=== PATIENT | female | born 1960 | race Caucasian/White ===

== ENCOUNTER 2016-05-31 11:33 | Inpatient (IN) | payer OTHER ==
[~2016-05-31] VITALS: Ht 149.9 cm; Wt 45.4 kg
[~2016-05-31 11:33] MED LIST: AMLODIPINE BESY10 MG PO; AMOXICILLIN875 MG PO; ASPIR 8181 M1 PO; ASPIR-LOW81 MG PO; AZITHROMYCIN250 MG PO; BENADRYL50 MG PO; CALCITRIOL0.25 MC1 NG; CALCITRIOL0.25 MCG PO; CARDIZEM CD,CA240 MG PO; CARDIZEM CD120 M1 PO; CARDIZEM120 MG PO; CLONIDINE HCL0.1 MG PO; DIALYVITE 3,001 EACH PO; DILANTIN; DILANTIN100 MG PO; DIPHENHYDRAMINE50 MG PO; FLONASE16 G1 BOTH NARES; FOSRENOL1000 MG PO; FOSRENOL500 MG PO; HYDRALAZINE HCL10 MG; HYDRALAZINE HCL10 MG PO; IMDUR30 MG PO; INDERIDE 40/1 TABLET PO; ISOSORBIDE MONO30 MG PO; KAYEXALATE15 GM/60 M PO; KIONEX15 GM/60 M PO; LEVAQUIN750 MG PO; LIDOCAINE-PRIL1 EACH TP; LIDOCAINE20 MG/1 M5 PO; LISINOPRIL40 MG PO; LOPRESSOR25 MG PO; LOPRESSOR50 MG PO; METOPROLOL SUCC50 MG PO; MULTIVITAMIN1 EAC2 PO; NICODERM CQ1 EAC1 TD; NITROSTAT0.4 MG SL; NORCO 5/3251 TABLET PO; NORVASC10 M1; NORVASC10 M1 PO; NORVASC10 MG PO; NORVASC5 MG PO; OSTERA TABLET1 EACH PO; PERCOCET 5/31 TABLET PO; PHENYTOIN SODI100 M1 PO; PHENYTOIN SODI100 MG PO; PREDNISONE20 MG PO; PRINIVIL20 MG PO; RENA-VITE RX T1 EACH PO; RENVELA800 MG PO; SENSIPAR30 MG PO; SENSIPAR60 MG PO; TOPROL XL50 MG PO; TRAMADOL HCL50 MG PO; TYLENOL EXTRA500 MG PO
[2016-05-31 12:58] LABS: EOSINOPHIL (%) 0.3 % (0-5); HEMATOCRIT 36.4 % (36.0-46.0); IMMATURE GRANULOCYTE (%) 0.5 % (0.0-0.7); IMMATURE GRANULOCYTE COUNT 0.1 K/uL; INSTRUMENT ABS NEUTROPHIL CT 8.3 K/uL; LYMPHOCYTE COUNT 0.7 K/uL (1.0-2.8); MCH 31.6 PG (29.0-34.0); MCHC 32.7 G/DL (30.0-36.0); MCV 96.6 FL (83-99); MEAN PLAT.VOLUME 13.2 uM^3 (9.5-12.4); MONOCYTE (%) 8.8 % (3-12); MONOCYTE COUNT 0.9 K/uL (0-0.8); NEUTROPHIL (%) 82.9 % (45-76); NEUTROPHIL COUNT 8.3 K/uL (1.8-6.4); PLATELET COUNT 168 K/uL (156-360); RBC DIS.WIDTH-CV 17.6 % (11.8-14.6); RBC DIS.WIDTH-SD 61.1 % (39-53); RED BLOOD COUNT 3.77 M/uL (3.80-5.20)
[2016-05-31 13:07] LABS: CHLORIDE 89 mEq/L (99-109); SODIUM 138 mEq/L (136-147)
[2016-05-31 13:08] LABS: INTER. NORMALIZED RATIO 1.4; PROTHROMBIN TIME 14.8 (9.2-11.2); PTT 28.5 (25-32)
[2016-05-31 13:09] LABS: GLUCOSE 63 mg/dL (70-99)
[2016-05-31 13:10] LABS: ANION GAP 28 MEQ/L (2-14)
[2016-05-31 13:13] LABS: GFR ESTIMATE (CALCULATED) 4 mL/min/
[2016-05-31 13:19] LABS: TROP-I INTERPRETATION NEGATIVE; TROPONIN-I 0.08 ng/mL (0.0-0.30)
[2016-05-31 13:20] LABS: POTASSIUM 7.4 mEq/L (3.7-5.4); UREA NITROGEN (BUN) 102 mg/dL (9-23)
[2016-05-31] MEDS ORDERED: RENVELA800 MG PO ×2 (14:44→15:19)
[2016-05-31] MEDS ORDERED: VENTOLIN HFA18 GM IH (14:45)
[2016-05-31] MEDS ORDERED: NORVASC10 MG PO (14:45)
[2016-05-31] MEDS ORDERED: KIONEX15 GM/60 M PO (14:46)
[2016-05-31] MEDS ORDERED: LIDOCAINE-PRIL1 EACH TP (14:47)
[2016-05-31 14:49] LABS: CHLORIDE 90 mEq/L (99-109); SODIUM 137 mEq/L (136-147)
[2016-05-31 14:52] LABS: ANION GAP 26 MEQ/L (2-14)
[2016-05-31 14:53] LABS: GLUCOSE 105 mg/dL (70-99); POTASSIUM 6.2 mEq/L (3.7-5.4)
[2016-05-31 14:54] LABS: GFR ESTIMATE (CALCULATED) 4 mL/min/
[2016-05-31] MEDS ORDERED: RENAPLEX D PO (14:55)
[2016-05-31 14:56] LABS: UREA NITROGEN (BUN) 101 mg/dL (9-23)
[2016-05-31] MEDS ORDERED: METOPROLOL SUCC50 MG PO (15:18)
[2016-05-31 19:29] LABS: CHLORIDE 94 mEq/L (99-109); SODIUM 140 mEq/L (136-147)
[2016-05-31 19:30] VITALS: BP 117/81
[2016-05-31 19:32] LABS: ANION GAP 17 MEQ/L (2-14)
[2016-05-31 19:39] LABS: GFR ESTIMATE (CALCULATED) 9 mL/min/; GLUCOSE 59 mg/dL (70-99); POTASSIUM 4.4 mEq/L (3.7-5.4); UREA NITROGEN (BUN) 33 mg/dL (9-23)
[2016-06-01 00:10] VITALS: BP 130/89
[2016-06-01 03:43] VITALS: BP 109/82
[2016-06-01 07:39] LABS: ANION GAP 18 MEQ/L (2-14); CHLORIDE 94 MEQ/L (99-109); GFR ESTIMATE (CALCULATED) 7 mL/min/; POTASSIUM 5.2 MEQ/L (3.7-5.4); SAMPLE HEMOLYSIS CHECK 0; SAMPLE ICTERIC CHECK 0; SAMPLE LIPEMIA CHECK 0; SODIUM 140 MEQ/L (136-147); UREA NITROGEN (BUN) 46 mg/dL (9-23)
[2016-06-01 07:40] LABS: GLUCOSE 84 mg/dL (70-99)
[2016-06-01 07:58] LABS: MCH 30.6 PG (29.0-34.0); MCHC 31.4 G/DL (30.0-36.0); MCV 97.6 FL (83-99); MEAN PLAT.VOLUME 13.1 uM^3 (9.5-12.4); PLATELET COUNT 140 K/uL (156-360); RBC DIS.WIDTH-CV 17.6 % (11.8-14.6); RBC DIS.WIDTH-SD 62.4 % (39-53); RED BLOOD COUNT 3.69 M/uL (3.80-5.20); WHITE BLOOD COUNT 8.2 K/uL (4.1-10.2)
[2016-06-01 08:36] VITALS: BP 115/74
[2016-06-01 12:00] VITALS: BP 93/56
== END 2016-06-01 16:16 | disposition left against medical advice (07) | DRG 640 ==
LOC: EME 11:33 → 4EAST 14:15 → EDOF 14:15 → 4EAST 21:24
PROVIDERS: Emergency Medicine; Internal Medicine; Nurse Practitioner Family
PROC: 5A1D00Z (ICD-10-PCS; principal; 2016-06-01)
DX: E87.5 Hyperkalemia (principal); N18.6 End stage renal disease; J81.1 Chronic pulmonary edema; I12.0 Hypertensive chronic kidney disease with stage 5 chronic kidney disease or end stage renal disease; I50.30 Unspecified diastolic (congestive) heart failure; F17.200 Nicotine dependence, unspecified, uncomplicated; I48.91 Unspecified atrial fibrillation; Z99.2 Dependence on renal dialysis; E87.8 Other disorders of electrolyte and fluid balance, not elsewhere classified; Z91.15 Patient's noncompliance with renal dialysis; F09 Unspecified mental disorder due to known physiological condition; D63.1 Anemia in chronic kidney disease; E78.5 Hyperlipidemia, unspecified
CPT/HCPCS: 71010; 80048; 80048 91; 84484; 85025; 85027; 85610; 85730; 87040; 93005; 93306; 94640; 94799; 99202; 99281; 99285; G0378; J1644

== ENCOUNTER 2016-06-14 13:55 | Day surgery (SDC) | payer OTHER ==
[~2016-06-14 13:55] MED LIST changes: +RENAPLEX D PO; +VENTOLIN HFA18 GM IH
[2016-06-14 15:59] LABS: METH RESISTANT S AUREUS PCR NEGATIVE (NEGATIVE)
[2016-06-14 16:00] LABS: PROBE CHECK PASS; SPECIMEN PROCESSING CONTROL PASS
== END 2016-06-14 17:25 | disposition home or self-care (01) ==
LOC: CATH 13:55
PROVIDERS: Surgery
DX: T82.868A Thrombosis due to vascular prosthetic devices, implants and grafts, initial encounter (principal); T82.858A Stenosis of other vascular prosthetic devices, implants and grafts, initial encounter; Y83.2 Surgical operation with anastomosis, bypass or graft as the cause of abnormal reaction of the patient, or of later complication, without mention of misadventure at the time of the procedure; I12.0 Hypertensive chronic kidney disease with stage 5 chronic kidney disease or end stage renal disease; N18.6 End stage renal disease; Z99.2 Dependence on renal dialysis
CPT/HCPCS: 87641; C1725; C1757; C1769; C1874; C1894; C2628; J1644; J2250; J3010

== ENCOUNTER 2016-06-19 09:07 | Inpatient (IN) | payer OTHER ==
[~2016-06-19] VITALS: Ht 149.9 cm; Wt 48.2 kg
[2016-06-19 10:11] LABS: EOSINOPHIL (%) 1.2 % (0-5); EOSINOPHIL COUNT 0.1 K/uL (0-0.3); HEMATOCRIT 30.4 % (36.0-46.0); IMMATURE GRANULOCYTE (%) 0.4 % (0.0-0.7); INSTRUMENT ABS NEUTROPHIL CT 5.8 K/uL; LYMPHOCYTE COUNT 0.9 K/uL (1.0-2.8); MCH 31.5 PG (29.0-34.0); MCHC 32.6 G/DL (30.0-36.0); MCV 96.8 FL (83-99); MEAN PLAT.VOLUME 12.5 uM^3 (9.5-12.4); MONOCYTE (%) 7.5 % (3-12); MONOCYTE COUNT 0.6 K/uL (0-0.8); NEUTROPHIL (%) 78.1 % (45-76); NEUTROPHIL COUNT 5.8 K/uL (1.8-6.4); NRBC (%) 0.3 /100 WBC (0-0); PLATELET COUNT 134 K/uL (156-360); RBC DIS.WIDTH-CV 16.8 % (11.8-14.6); RBC DIS.WIDTH-SD 57.1 % (39-53); RED BLOOD COUNT 3.14 M/uL (3.80-5.20); WHITE BLOOD COUNT 7.4 K/uL (4.1-10.2)
[2016-06-19 10:30] LABS: CHLORIDE 90 mEq/L (99-109); POTASSIUM 4.1 mEq/L (3.7-5.4); SODIUM 136 mEq/L (136-147)
[2016-06-19 10:32] LABS: GLUCOSE 86 mg/dL (70-99)
[2016-06-19 10:33] LABS: ANION GAP 18 MEQ/L (2-14)
[2016-06-19 10:36] LABS: GFR ESTIMATE (CALCULATED) 6 mL/min/; UREA NITROGEN (BUN) 45 mg/dL (9-23)
[2016-06-19 10:47] LABS: INFLUENZA A VIRAL ANTIGEN NEGATIVE; INFLUENZA B VIRAL ANTIGEN NEGATIVE
[2016-06-19] MEDS ORDERED: LO-DOSE ASPIRIN81 M2 PO (18:54)
[2016-06-19] MEDS ORDERED: RENVELA2.4 GM PO (18:55)
[2016-06-19 23:35] VITALS: BP 114/74
[2016-06-19 23:51] VITALS: BP 114/74
[2016-06-20] VITALS (7 sets, daily range): BP systolic 84–134; BP diastolic 52–81
[2016-06-20 02:08] LABS: TROP-I INTERPRETATION NEGATIVE; TROPONIN-I 0.04 ng/mL (0.0-0.30)
[2016-06-20 07:01] LABS: HEMATOCRIT 32.2 % (36.0-46.0); MCH 31.8 PG (29.0-34.0); MCHC 31.7 G/DL (30.0-36.0); MCV 100.3 FL (83-99); MEAN PLAT.VOLUME 12.2 uM^3 (9.5-12.4); NRBC (%) 0.7 /100 WBC (0-0); PLATELET COUNT 144 K/uL (156-360); RBC DIS.WIDTH-CV 17.2 % (11.8-14.6); RBC DIS.WIDTH-SD 60.3 % (39-53); RED BLOOD COUNT 3.21 M/uL (3.80-5.20)
[2016-06-20 07:32] LABS: TROP-I INTERPRETATION NEGATIVE; TROPONIN-I 0.04 ng/mL (0.0-0.30)
[2016-06-20 07:52] LABS: ANION GAP 15 MEQ/L (2-14); CHLORIDE 97 MEQ/L (99-109); GFR ESTIMATE (CALCULATED) 10 mL/min/; GLUCOSE 88 mg/dL (70-99); POTASSIUM 4.5 MEQ/L (3.7-5.4); SAMPLE HEMOLYSIS CHECK 0; SAMPLE ICTERIC CHECK 0; SAMPLE LIPEMIA CHECK 0; SODIUM 140 MEQ/L (136-147); UREA NITROGEN (BUN) 29 mg/dL (9-23)
[2016-06-21 03:50] VITALS: BP 134/90
[2016-06-21 05:33] LABS: HEMATOCRIT 33.2 % (36.0-46.0); MCH 32.4 PG (29.0-34.0); MCHC 32.5 G/DL (30.0-36.0); MCV 99.7 FL (83-99); MEAN PLAT.VOLUME 13.2 uM^3 (9.5-12.4); NRBC (%) 0.5 /100 WBC (0-0); PLATELET COUNT 141 K/uL (156-360); RBC DIS.WIDTH-CV 17.3 % (11.8-14.6); RBC DIS.WIDTH-SD 59.5 % (39-53); RED BLOOD COUNT 3.33 M/uL (3.80-5.20); WHITE BLOOD COUNT 6.2 K/uL (4.1-10.2)
[2016-06-21 05:51] LABS: ANION GAP 18 MEQ/L (2-14); CHLORIDE 93 MEQ/L (99-109); MAGNESIUM 2.8 mg/dl (1.3-2.7); SAMPLE HEMOLYSIS CHECK 0; SAMPLE ICTERIC CHECK 0; SAMPLE LIPEMIA CHECK 0; SODIUM 136 MEQ/L (136-147)
[2016-06-21 05:58] LABS: GFR ESTIMATE (CALCULATED) 6 mL/min/; GLUCOSE 150 mg/dL (70-99); POTASSIUM 5.6 MEQ/L (3.7-5.4); UREA NITROGEN (BUN) 59 mg/dL (9-23)
[2016-06-21 07:26] VITALS: BP 114/74
[2016-06-21] MEDS ORDERED: MEDROL DOSEPAK4 MG PO (10:46)
[2016-06-21 11:34] VITALS: BP 129/70
== END 2016-06-21 14:01 | disposition home or self-care (01) | DRG 291 ==
LOC: EME → EDBD 09:07 → EME 09:07 → 4EAST 21:55 → EDOF 21:55 → 4EAST 23:32
PROVIDERS: Emergency Medicine; Hospitalist; Internal Medicine Nephrology
PROC: 5A1D60Z (ICD-10-PCS; principal; 2016-06-19)
DX: I13.2 Hypertensive heart and chronic kidney disease with heart failure and with stage 5 chronic kidney disease, or end stage renal disease (principal); I50.33 Acute on chronic diastolic (congestive) heart failure; N18.6 End stage renal disease; J96.01 Acute respiratory failure with hypoxia; J44.1 Chronic obstructive pulmonary disease with (acute) exacerbation; Z99.2 Dependence on renal dialysis; I27.2 Other secondary pulmonary hypertension; Z91.19 Patient's noncompliance with other medical treatment and regimen; I48.0 Paroxysmal atrial fibrillation; G40.909 Epilepsy, unspecified, not intractable, without status epilepticus; D69.6 Thrombocytopenia, unspecified; F17.200 Nicotine dependence, unspecified, uncomplicated; I05.0 Rheumatic mitral stenosis; F41.9 Anxiety disorder, unspecified; R59.1 Generalized enlarged lymph nodes; E87.5 Hyperkalemia; D63.1 Anemia in chronic kidney disease; I42.9 Cardiomyopathy, unspecified
CPT/HCPCS: 70450; 70490; 70551; 71010; 80048; 80069; 83735; 84443; 84484; 85025; 85027; 87040; 87502; 87651 90; 93005; 94640; 94799; 99202; 99281; 99285; J1644; J2930; J7050

== ENCOUNTER 2016-08-16 10:37 | Emergency (ER) | payer OTHER ==
[~2016-08-16] VITALS: Ht 147.3 cm; Wt 51.8 kg
[~2016-08-16 10:37] MED LIST changes: +LO-DOSE ASPIRIN81 M2 PO; +MEDROL DOSEPAK4 MG PO; +RENVELA2.4 GM PO
[2016-08-16 11:33] LABS: EOSINOPHIL (%) 0.9 % (0-5); EOSINOPHIL COUNT 0.1 K/uL (0-0.3); HEMATOCRIT 34.9 % (36.0-46.0); IMMATURE GRANULOCYTE (%) 0.4 % (0.0-0.7); IMMATURE GRANULOCYTE COUNT 0.1 K/uL; INSTRUMENT ABS NEUTROPHIL CT 9.7 K/uL; LYMPHOCYTE COUNT 0.8 K/uL (1.0-2.8); MCH 32.7 PG (29.0-34.0); MCHC 33.2 G/DL (30.0-36.0); MCV 98.3 FL (83-99); MEAN PLAT.VOLUME 11.7 uM^3 (9.5-12.4); MONOCYTE (%) 7.7 % (3-12); MONOCYTE COUNT 0.9 K/uL (0-0.8); NEUTROPHIL (%) 83.8 % (45-76); NEUTROPHIL COUNT 9.7 K/uL (1.8-6.4); PLATELET COUNT 101 K/uL (156-360); RBC DIS.WIDTH-CV 16.7 % (11.8-14.6); RBC DIS.WIDTH-SD 60.6 % (39-53); RED BLOOD COUNT 3.55 M/uL (3.80-5.20); WHITE BLOOD COUNT 11.6 K/uL (4.1-10.2)
[2016-08-16 11:46] LABS: CHLORIDE 96 mEq/L (99-109); SODIUM 138 mEq/L (136-147)
[2016-08-16 11:48] LABS: GLUCOSE 92 mg/dL (70-99)
[2016-08-16 11:49] LABS: ANION GAP 14 MEQ/L (2-14)
[2016-08-16 11:51] LABS: GFR ESTIMATE (CALCULATED) 5 mL/min/
[2016-08-16 11:52] LABS: UREA NITROGEN (BUN) 61 mg/dL (9-23)
[2016-08-16 18:05] VITALS: BP 141/105
== END 2016-08-16 18:05 | disposition left against medical advice (07) ==
LOC: EME 10:37
PROVIDERS: Emergency Medicine
DX: J44.9 Chronic obstructive pulmonary disease, unspecified (principal); J40 Bronchitis, not specified as acute or chronic; R00.0 Tachycardia, unspecified; I12.0 Hypertensive chronic kidney disease with stage 5 chronic kidney disease or end stage renal disease; N18.6 End stage renal disease; E87.5 Hyperkalemia; Z99.2 Dependence on renal dialysis; J45.909 Unspecified asthma, uncomplicated; Z79.82 Long term (current) use of aspirin; Z88.5 Allergy status to narcotic agent; Z88.0 Allergy status to penicillin; Z88.8 Allergy status to other drugs, medicaments and biological substances; Z87.891 Personal history of nicotine dependence
CPT/HCPCS: 71010; 80048; 85025; 93005; 94640; 99281; 99284

== ENCOUNTER 2016-10-15 06:20 | Inpatient (IN) | payer OTHER ==
[~2016-10-15] VITALS: Ht 124.5 cm; Wt 55.8 kg
[2016-10-15 06:55] LABS: EOSINOPHIL (%) 2.2 % (0-5); EOSINOPHIL COUNT 0.2 K/uL (0-0.3); IMMATURE GRANULOCYTE (%) 0.1 % (0.0-0.7); INSTRUMENT ABS NEUTROPHIL CT 4.7 K/uL; LYMPHOCYTE COUNT 1.2 K/uL (1.0-2.8); MCHC 31.9 G/DL (30.0-36.0); MCV 103.4 FL (83-99); MEAN PLAT.VOLUME 11.1 uM^3 (9.5-12.4); MONOCYTE (%) 12.5 % (3-12); MONOCYTE COUNT 0.9 K/uL (0-0.8); NEUTROPHIL (%) 67.8 % (45-76); NEUTROPHIL COUNT 4.7 K/uL (1.8-6.4); PLATELET COUNT 149 K/uL (156-360); RBC DIS.WIDTH-CV 17.4 % (11.8-14.6); RBC DIS.WIDTH-SD 65.1 % (39-53); RED BLOOD COUNT 3.48 M/uL (3.80-5.20)
[2016-10-15 07:02] LABS: INTER. NORMALIZED RATIO 1.1; PROTHROMBIN TIME 12.6 SEC (10.2-12.9)
[2016-10-15 07:04] LABS: PTT 31.7 SEC (25-37)
[2016-10-15 07:21] LABS: ANION GAP 15 MEQ/L (2-14); CHLORIDE 93 MEQ/L (99-109); POTASSIUM 5.3 MEQ/L (3.7-5.4); SAMPLE HEMOLYSIS CHECK 0; SAMPLE ICTERIC CHECK 0; SAMPLE LIPEMIA CHECK 0; SODIUM 139 MEQ/L (136-147)
[2016-10-15 07:27] LABS: GFR ESTIMATE (CALCULATED) 7 mL/min/; GLUCOSE 87 mg/dL (70-99); UREA NITROGEN (BUN) 48 mg/dL (9-23)
[2016-10-15 07:41] LABS: TROP-I INTERPRETATION POSITIVE; TROPONIN-I 2.92 ng/mL (0.0-0.30)
[2016-10-15] MEDS ORDERED: ZESTRIL40 MG PO (10:02)
[2016-10-15] MEDS ORDERED: AMLODIPINE BESY10 MG PO (10:03)
[2016-10-15] MEDS ORDERED: SENSIPAR60 MG PO (10:03)
[2016-10-15] MEDS ORDERED: CARDIZEM CD120 MG PO (10:04)
[2016-10-15] MEDS ORDERED: LIDOCAINE-PRIL1 EACH TP (10:04)
[2016-10-15] MEDS ORDERED: TOPROL XL50 MG PO (10:05)
[2016-10-15] MEDS ORDERED: LOW DOSE ASPIRI81 M1 PO (10:06)
[2016-10-15] MEDS ORDERED: RENVELA800 MG PO ×2 (10:06→10:07)
[2016-10-15] MEDS ORDERED: DILANTIN100 MG PO (10:08)
[2016-10-15 10:27] VITALS: BP 120/78
[2016-10-15 10:29] VITALS: BP 120/78
[2016-10-15 15:23] VITALS: BP 97/57
[2016-10-15 17:06] LABS: TROP-I INTERPRETATION POSITIVE; TROPONIN-I 3.17 ng/mL (0.0-0.30)
[2016-10-15 20:03] VITALS: BP 99/57
[2016-10-16] VITALS (7 sets, daily range): BP systolic 98–114; BP diastolic 47–64
[2016-10-16 05:26] LABS: BASOPHIL COUNT 0.1 K/uL (0-0.1); EOSINOPHIL (%) 2.3 % (0-5); EOSINOPHIL COUNT 0.2 K/uL (0-0.3); HEMATOCRIT 35.6 % (36.0-46.0); IMMATURE GRANULOCYTE (%) 0.2 % (0.0-0.7); INSTRUMENT ABS NEUTROPHIL CT 5.5 K/uL; LYMPHOCYTE COUNT 1.6 K/uL (1.0-2.8); MCH 33.5 PG (29.0-34.0); MCHC 32.6 G/DL (30.0-36.0); MCV 102.9 FL (83-99); MEAN PLAT.VOLUME 11.7 uM^3 (9.5-12.4); MONOCYTE (%) 10.2 % (3-12); MONOCYTE COUNT 0.8 K/uL (0-0.8); NEUTROPHIL (%) 67.1 % (45-76); NEUTROPHIL COUNT 5.5 K/uL (1.8-6.4); PLATELET COUNT 160 K/uL (156-360); RBC DIS.WIDTH-CV 17.4 % (11.8-14.6); RBC DIS.WIDTH-SD 64.9 % (39-53); RED BLOOD COUNT 3.46 M/uL (3.80-5.20); WHITE BLOOD COUNT 8.2 K/uL (4.1-10.2)
[2016-10-16 06:13] LABS: ANION GAP 19 MEQ/L (2-14); CHLORIDE 91 MEQ/L (99-109); GLUCOSE 88 mg/dL (70-99); SAMPLE HEMOLYSIS CHECK 0; SAMPLE ICTERIC CHECK 0; SAMPLE LIPEMIA CHECK 0; SODIUM 137 MEQ/L (136-147); UREA NITROGEN (BUN) 69 mg/dL (9-23)
[2016-10-16 06:28] LABS: GFR ESTIMATE (CALCULATED) 5 mL/min/; POTASSIUM 6.4 MEQ/L (3.7-5.4)
[2016-10-16 08:32] LABS: MAGNESIUM 2.9 mg/dl (1.3-2.7)
[2016-10-16 11:00] LABS: POINT-OF-CARE METER ID UU13113698
[2016-10-16 16:27] LABS: CHLORIDE 95 mEq/L (99-109); SODIUM 139 mEq/L (136-147)
[2016-10-16 16:29] LABS: GLUCOSE 50 mg/dL (70-99); POTASSIUM 3.7 mEq/L (3.7-5.4)
[2016-10-16 16:30] LABS: ANION GAP 22 MEQ/L (2-14)
[2016-10-16 16:33] LABS: GFR ESTIMATE (CALCULATED) 12 mL/min/
[2016-10-16 16:40] LABS: UREA NITROGEN (BUN) 19 mg/dL (9-23)
[2016-10-17 00:13] VITALS: BP 115/51
[2016-10-17 11:18] LABS: AHBS INDEX 2.44; HEPATITIS B SURFACE ANTIBODY Nonreactive
== END 2016-10-17 00:51 | disposition short-term general hospital (02) | DRG 280 ==
LOC: EME → EDBD 06:20 → EME 06:20 → EDOF 08:43 → 4EAST 08:43 → ENRESERV 08:50 → 4EAST 10:14
PROVIDERS: Emergency Medicine; Internal Medicine; Internal Medicine Cardiovascular Disease; Student in an Organized Health Care Education/Training Program
PROC: 4A023N7 Measurement of Cardiac Sampling and Pressure, Left Heart, Percutaneous Approach (ICD-10-PCS; principal; 2016-10-16)
PROC: B2151ZZ Fluoroscopy of Left Heart using Low Osmolar Contrast (ICD-10-PCS; principal; 2016-10-16)
PROC: B2111ZZ Fluoroscopy of Multiple Coronary Arteries using Low Osmolar Contrast (ICD-10-PCS; principal; 2016-10-16)
PROC: 5A1D00Z (ICD-10-PCS; principal; 2016-10-16)
DX: I21.4 Non-ST elevation (NSTEMI) myocardial infarction (principal); N25.81 Secondary hyperparathyroidism of renal origin; I12.0 Hypertensive chronic kidney disease with stage 5 chronic kidney disease or end stage renal disease; I27.2 Other secondary pulmonary hypertension; E83.39 Other disorders of phosphorus metabolism; N18.6 End stage renal disease; S06.9X9S Unspecified intracranial injury with loss of consciousness of unspecified duration, sequela; I48.0 Paroxysmal atrial fibrillation; G40.909 Epilepsy, unspecified, not intractable, without status epilepticus; D63.1 Anemia in chronic kidney disease; E78.5 Hyperlipidemia, unspecified; E87.5 Hyperkalemia; F17.210 Nicotine dependence, cigarettes, uncomplicated; F71 Moderate intellectual disabilities; I25.10 Atherosclerotic heart disease of native coronary artery without angina pectoris; I34.0 Nonrheumatic mitral (valve) insufficiency; J44.9 Chronic obstructive pulmonary disease, unspecified; Z79.82 Long term (current) use of aspirin; Z79.899 Other long term (current) drug therapy; Z82.49 Family history of ischemic heart disease and other diseases of the circulatory system; V89.2XXS Person injured in unspecified motor-vehicle accident, traffic, sequela; Z91.14 Patient's other noncompliance with medication regimen; Z99.2 Dependence on renal dialysis
CPT/HCPCS: 71010; 80048; 80048 91; 82948; 83735; 84484; 85025; 85027; 85347; 85610; 85730; 86706; 87340; 93005; 94640; 94799; 99281; 99285; C1769; C1887; J1170; J1644; J1815; J2250; J3010; J7040; S0028

== ENCOUNTER 2016-10-29 06:45 | Observation (INO) | payer OTHER ==
[~2016-10-29] VITALS: Ht 127 cm; Wt 53.6 kg
[~2016-10-29 06:45] MED LIST changes: +CARDIZEM CD120 MG PO; +LOW DOSE ASPIRI81 M1 PO; +ZESTRIL40 MG PO
[2016-10-29 07:18] LABS: BASOPHIL COUNT 0.1 K/uL (0-0.1); EOSINOPHIL (%) 1.7 % (0-5); EOSINOPHIL COUNT 0.1 K/uL (0-0.3); IMMATURE GRANULOCYTE (%) 0.2 % (0.0-0.7); INSTRUMENT ABS NEUTROPHIL CT 6.4 K/uL; LYMPHOCYTE COUNT 0.8 K/uL (1.0-2.8); MCH 32.8 PG (29.0-34.0); MCHC 31.5 G/DL (30.0-36.0); MCV 104.2 FL (83-99); MEAN PLAT.VOLUME 10.9 uM^3 (9.5-12.4); MONOCYTE (%) 10.4 % (3-12); MONOCYTE COUNT 0.9 K/uL (0-0.8); NEUTROPHIL (%) 77.8 % (45-76); NEUTROPHIL COUNT 6.4 K/uL (1.8-6.4); PLATELET COUNT 148 K/uL (156-360); RBC DIS.WIDTH-CV 16.3 % (11.8-14.6); RBC DIS.WIDTH-SD 62.7 % (39-53); WHITE BLOOD COUNT 8.2 K/uL (4.1-10.2)
[2016-10-29 07:27] LABS: PTT 40.7 SEC (25-37); RED BLOOD COUNT 2.59 M/uL (3.80-5.20)
[2016-10-29 07:31] LABS: INTER. NORMALIZED RATIO 2.7; PROTHROMBIN TIME 30.6 SEC (10.2-12.9)
[2016-10-29 07:43] LABS: ALKALINE PHOSPHATASE 152 IU/L (3-129); ANION GAP 12 MEQ/L (2-14); CHLORIDE 96 MEQ/L (99-109); GFR ESTIMATE (CALCULATED) 7 mL/min/; GLUCOSE 92 mg/dL (70-99); POTASSIUM 4.4 MEQ/L (3.7-5.4); SAMPLE HEMOLYSIS CHECK 0; SAMPLE ICTERIC CHECK 0; SAMPLE LIPEMIA CHECK 0; SODIUM 137 MEQ/L (136-147); TOTAL BILIRUBIN 0.4 MG/DL (0.0-1.0); TROP-I INTERPRETATION NEGATIVE; TROPONIN-I 0.08 ng/mL (0.0-0.30); UREA NITROGEN (BUN) 36 mg/dL (9-23)
[2016-10-29 10:24] VITALS: BP 128/79
[2016-10-29 13:41] LABS: TROP-I INTERPRETATION NEGATIVE; TROPONIN-I 0.08 ng/mL (0.0-0.30)
[2016-10-29 19:41] LABS: TROP-I INTERPRETATION NEGATIVE; TROPONIN-I 0.08 ng/mL (0.0-0.30)
[2016-10-29 20:00] VITALS: BP 127/73
[2016-10-30] VITALS: BP 138/77
[2016-10-30 04:00] VITALS: BP 150/81
[2016-10-30 08:05] LABS: HEMATOCRIT 26.5 % (36.0-46.0); MCH 32.9 PG (29.0-34.0); MCHC 32.1 G/DL (30.0-36.0); MCV 102.7 FL (83-99); MEAN PLAT.VOLUME 11.4 uM^3 (9.5-12.4); PLATELET COUNT 156 K/uL (156-360); RBC DIS.WIDTH-CV 16.2 % (11.8-14.6); RBC DIS.WIDTH-SD 61.2 % (39-53); RED BLOOD COUNT 2.58 M/uL (3.80-5.20); WHITE BLOOD COUNT 8.2 K/uL (4.1-10.2)
[2016-10-30 08:28] LABS: ANION GAP 14 MEQ/L (2-14); CHLORIDE 94 MEQ/L (99-109); GFR ESTIMATE (CALCULATED) 6 mL/min/; GLUCOSE 124 mg/dL (70-99); SAMPLE HEMOLYSIS CHECK 0; SAMPLE ICTERIC CHECK 0; SAMPLE LIPEMIA CHECK 0; SODIUM 135 MEQ/L (136-147); UREA NITROGEN (BUN) 59 mg/dL (9-23)
[2016-10-30] MEDS ORDERED: MAALOX ADVANCE355 ML PO (09:20)
[2016-10-30] MEDS ORDERED: SENSIPAR60 MG PO (09:21)
[2016-10-30] MEDS ORDERED: AMLODIPINE BESY10 MG PO (09:21)
[2016-10-30] MEDS ORDERED: NITROSTAT0.4 MG SL (09:21)
[2016-10-30] MEDS ORDERED: ZANTAC150 MG PO (09:21)
[2016-10-30] MEDS ORDERED: CARDIZEM CD120 MG PO (09:21)
[2016-10-30] MEDS ORDERED: RENVELA800 MG PO ×2 (09:21)
[2016-10-30] MEDS ORDERED: ZESTRIL40 MG PO (09:21)
[2016-10-30] MEDS ORDERED: TOPROL XL50 MG PO (09:21)
[2016-10-30 11:59] VITALS: BP 137/83
== END 2016-10-30 13:59 | disposition home or self-care (01) ==
LOC: EME → EDBD 06:45 → EDOF 08:59 → 5WEST 08:59 → EDOF 08:59 → ENRESERV 09:01 → EDOF 09:04 → ENRESERV 09:11 → 5WEST 10:11 → ENPENDDIS 10-30 → 5WEST 10-30 13:59
PROVIDERS: Emergency Medicine; Internal Medicine
DX: R07.89 Other chest pain (principal); I25.10 Atherosclerotic heart disease of native coronary artery without angina pectoris; I25.2 Old myocardial infarction; I12.0 Hypertensive chronic kidney disease with stage 5 chronic kidney disease or end stage renal disease; N18.6 End stage renal disease; Z99.2 Dependence on renal dialysis; I48.0 Paroxysmal atrial fibrillation; G40.909 Epilepsy, unspecified, not intractable, without status epilepticus; Z87.820 Personal history of traumatic brain injury; D69.6 Thrombocytopenia, unspecified; D64.9 Anemia, unspecified; J44.9 Chronic obstructive pulmonary disease, unspecified; I27.2 Other secondary pulmonary hypertension; I34.0 Nonrheumatic mitral (valve) insufficiency; E83.39 Other disorders of phosphorus metabolism; N25.81 Secondary hyperparathyroidism of renal origin; Z82.49 Family history of ischemic heart disease and other diseases of the circulatory system; Z87.891 Personal history of nicotine dependence; Z88.0 Allergy status to penicillin
CPT/HCPCS: 71010; 80048; 80053; 84484; 85025; 85027; 85610; 85730; 93005; 94799; 99281; 99285; G0257; G0378; J1644

== ENCOUNTER 2016-11-20 06:48 | Inpatient (IN) | payer OTHER ==
[~2016-11-20] VITALS: Ht 124.5 cm; Wt 46.5 kg
[~2016-11-20 06:48] MED LIST changes: +MAALOX ADVANCE355 ML PO; +ZANTAC150 MG PO
[2016-11-20 07:46] LABS: HEMATOCRIT 28.7 % (36.0-46.0); MCH 33.3 PG (29.0-34.0); MCHC 31.7 G/DL (30.0-36.0); MCV 105.1 FL (83-99); RBC DIS.WIDTH-CV 16.3 % (11.8-14.6); RBC DIS.WIDTH-SD 60.4 % (39-53); RED BLOOD COUNT 2.73 M/uL (3.80-5.20); WHITE BLOOD COUNT 9.4 K/uL (4.1-10.2)
[2016-11-20] MEDS ORDERED: RENVELA2.4 GM PO (07:46)
[2016-11-20 08:19] LABS: MEAN PLAT.VOLUME 12.4 uM^3 (9.5-12.4); PLAT.SUFFICIENCY DECREASED; PLATELET COUNT 103 K/uL (156-360)
[2016-11-20 08:31] LABS: ALKALINE PHOSPHATASE 162 IU/L (3-129); ANION GAP 19 MEQ/L (2-14); CHLORIDE 94 MEQ/L (99-109); GFR ESTIMATE (CALCULATED) 4 mL/min/; GLUCOSE 87 mg/dL (70-99); SAMPLE HEMOLYSIS CHECK 0; SAMPLE ICTERIC CHECK 0; SAMPLE LIPEMIA CHECK 0; SODIUM 138 MEQ/L (136-147); TOTAL BILIRUBIN 0.4 MG/DL (0.0-1.0); UREA NITROGEN (BUN) 85 mg/dL (9-23)
[2016-11-20 08:32] LABS: POTASSIUM 6.7 MEQ/L (3.7-5.4)
[2016-11-20 08:35] LABS: TROP-I INTERPRETATION NEGATIVE; TROPONIN-I 0.04 ng/mL (0.0-0.30)
[2016-11-20 09:06] LABS: POTASSIUM 6.7 mEq/L (3.7-5.4)
[2016-11-20 17:00] VITALS: BP 128/68
[2016-11-20 17:30] LABS: TROP-I INTERPRETATION NEGATIVE; TROPONIN-I 0.03 ng/mL (0.0-0.30)
[2016-11-20 19:15] VITALS: BP 107/58
[2016-11-20 20:42] LABS: TROP-I INTERPRETATION NEGATIVE; TROPONIN-I 0.03 ng/mL (0.0-0.30)
[2016-11-20 21:55] VITALS: BP 114/58
[2016-11-20 23:40] VITALS: BP 107/59
[2016-11-21 03:14] VITALS: BP 106/54; BP 99/51
[2016-11-21 06:31] LABS: EOSINOPHIL (%) 1.8 % (0-5); EOSINOPHIL COUNT 0.1 K/uL (0-0.3); HEMATOCRIT 30.7 % (36.0-46.0); IMMATURE GRANULOCYTE (%) 0.4 % (0.0-0.7); INSTRUMENT ABS NEUTROPHIL CT 5.9 K/uL; LYMPHOCYTE COUNT 0.8 K/uL (1.0-2.8); MCH 34.6 PG (29.0-34.0); MCHC 32.6 G/DL (30.0-36.0); MCV 106.2 FL (83-99); MEAN PLAT.VOLUME 12.3 uM^3 (9.5-12.4); MONOCYTE (%) 8.3 % (3-12); MONOCYTE COUNT 0.6 K/uL (0-0.8); NEUTROPHIL (%) 78.2 % (45-76); NEUTROPHIL COUNT 5.9 K/uL (1.8-6.4); PLATELET COUNT 95 K/uL (156-360); RBC DIS.WIDTH-CV 16.2 % (11.8-14.6); RED BLOOD COUNT 2.89 M/uL (3.80-5.20); WHITE BLOOD COUNT 7.6 K/uL (4.1-10.2)
[2016-11-21 07:01] LABS: ANION GAP 14 MEQ/L (2-14); CHLORIDE 98 MEQ/L (99-109); SAMPLE HEMOLYSIS CHECK 0; SAMPLE ICTERIC CHECK 0; SAMPLE LIPEMIA CHECK 0; SODIUM 141 MEQ/L (136-147)
[2016-11-21 07:08] LABS: GFR ESTIMATE (CALCULATED) 7 mL/min/; GLUCOSE 109 mg/dL (70-99); POTASSIUM 4.9 MEQ/L (3.7-5.4); UREA NITROGEN (BUN) 33 mg/dL (9-23)
[2016-11-21 08:25] VITALS: BP 116/53
[2016-11-21 16:00] VITALS: BP 128/75; BP 97/52
[2016-11-21] MEDS ORDERED: TYLENOL REGULA325 MG PO (16:13)
[2016-11-21] MEDS ORDERED: LIPITOR80 MG PO (16:15)
[2016-11-21] MEDS ORDERED: ZESTRIL20 MG PO (16:16)
[2016-11-21] MEDS ORDERED: ZESTRIL40 MG PO (16:16)
[2016-11-21] MEDS ORDERED: RENVELA800 MG PO (16:19)
[2016-11-21 22:53] VITALS: BP 97/56
[2016-11-22 07:42] VITALS: BP 96/52
[2016-11-22 08:05] LABS: HEMATOCRIT 26.9 % (36.0-46.0); MCH 34.5 PG (29.0-34.0); MCHC 32.7 G/DL (30.0-36.0); MCV 105.5 FL (83-99); MEAN PLAT.VOLUME 12.3 uM^3 (9.5-12.4); PLATELET COUNT 81 K/uL (156-360); RBC DIS.WIDTH-CV 15.9 % (11.8-14.6); RBC DIS.WIDTH-SD 61.3 % (39-53); RED BLOOD COUNT 2.55 M/uL (3.80-5.20); WHITE BLOOD COUNT 5.5 K/uL (4.1-10.2)
[2016-11-22 08:30] LABS: ANION GAP 16 MEQ/L (2-14); CHLORIDE 95 MEQ/L (99-109); GFR ESTIMATE (CALCULATED) 5 mL/min/; GLUCOSE 136 mg/dL (70-99); POTASSIUM 4.9 MEQ/L (3.7-5.4); SAMPLE HEMOLYSIS CHECK 0; SAMPLE ICTERIC CHECK 0; SAMPLE LIPEMIA CHECK 0; SODIUM 137 MEQ/L (136-147); UREA NITROGEN (BUN) 49 mg/dL (9-23)
[2016-11-22 12:03] VITALS: BP 100/58
[2016-11-22] MEDS ORDERED: AZITHROMYCIN500 M1 PO (13:19)
== END 2016-11-22 14:25 | disposition home or self-care (01) | DRG 190 ==
LOC: EME → EDBD 06:48 → EME 06:48 → EDOF 10:01 → 5EAST 10:01 → ENRESERV 10:03 → CANRESERV 10:03 → ENRESERV 11:44 → 5EAST 15:00 → ENPENDDIS 11-22 → 5EAST 11-22 14:25
PROVIDERS: Internal Medicine; Nurse Practitioner Family
PROC: 5A1D60Z (ICD-10-PCS; principal; 2016-11-20)
DX: J44.0 Chronic obstructive pulmonary disease with (acute) lower respiratory infection (principal); J18.9 Pneumonia, unspecified organism; I50.33 Acute on chronic diastolic (congestive) heart failure; J96.01 Acute respiratory failure with hypoxia; N18.6 End stage renal disease; I13.2 Hypertensive heart and chronic kidney disease with heart failure and with stage 5 chronic kidney disease, or end stage renal disease; N25.81 Secondary hyperparathyroidism of renal origin; I25.10 Atherosclerotic heart disease of native coronary artery without angina pectoris; I48.0 Paroxysmal atrial fibrillation; I34.0 Nonrheumatic mitral (valve) insufficiency; Z91.19 Patient's noncompliance with other medical treatment and regimen; D63.1 Anemia in chronic kidney disease; I27.2 Other secondary pulmonary hypertension; E11.22 Type 2 diabetes mellitus with diabetic chronic kidney disease; E87.5 Hyperkalemia; F17.210 Nicotine dependence, cigarettes, uncomplicated; R93.8 Abnormal findings on diagnostic imaging of other specified body structures; D69.6 Thrombocytopenia, unspecified; G43.909 Migraine, unspecified, not intractable, without status migrainosus; I34.2 Nonrheumatic mitral (valve) stenosis; F71 Moderate intellectual disabilities; E83.39 Other disorders of phosphorus metabolism; G40.909 Epilepsy, unspecified, not intractable, without status epilepticus; Z99.81 Dependence on supplemental oxygen; I25.2 Old myocardial infarction; Z99.2 Dependence on renal dialysis; Z91.14 Patient's other noncompliance with medication regimen; Z88.0 Allergy status to penicillin; Z88.5 Allergy status to narcotic agent; Z87.820 Personal history of traumatic brain injury; Z82.49 Family history of ischemic heart disease and other diseases of the circulatory system
CPT/HCPCS: 71010; 71020; 80048; 80053; 80202; 84484; 84999; 85025; 85027; 87040; 87070; 87205; 87449; 93005; 99202; 99281; 99285; J0456; J0692; J0881; J1270; J1644; J3010; J3370; J7050

== ENCOUNTER 2016-11-29 06:28 | Emergency (ER) | payer OTHER ==
[~2016-11-29] VITALS: Ht 149.9 cm; Wt 50.0 kg
[~2016-11-29 06:28] MED LIST changes: +AZITHROMYCIN500 M1 PO; +LIPITOR80 MG PO; +TYLENOL REGULA325 MG PO; +ZESTRIL20 MG PO
[2016-11-29 06:50] LABS: EOSINOPHIL (%) 2.3 % (0-5); EOSINOPHIL COUNT 0.1 K/uL (0-0.3); HEMATOCRIT 31.7 % (36.0-46.0); IMMATURE GRANULOCYTE (%) 0.3 % (0.0-0.7); INSTRUMENT ABS NEUTROPHIL CT 4.2 K/uL; LYMPHOCYTE COUNT 1.2 K/uL (1.0-2.8); MCH 33.3 PG (29.0-34.0); MCHC 31.9 G/DL (30.0-36.0); MCV 104.6 FL (83-99); MEAN PLAT.VOLUME 11.8 uM^3 (9.5-12.4); MONOCYTE (%) 10.7 % (3-12); MONOCYTE COUNT 0.7 K/uL (0-0.8); NEUTROPHIL (%) 67.4 % (45-76); NEUTROPHIL COUNT 4.2 K/uL (1.8-6.4); PLATELET COUNT 100 K/uL (156-360); RBC DIS.WIDTH-CV 15.7 % (11.8-14.6); RBC DIS.WIDTH-SD 59.7 % (39-53); RED BLOOD COUNT 3.03 M/uL (3.80-5.20); WHITE BLOOD COUNT 6.2 K/uL (4.1-10.2)
[2016-11-29 06:56] LABS: INTER. NORMALIZED RATIO 1.1; PROTHROMBIN TIME 12.2 SEC (10.2-12.9)
[2016-11-29 06:58] LABS: PTT 32.9 SEC (25-37)
[2016-11-29 07:01] LABS: CHLORIDE 96 mEq/L (99-109); POTASSIUM 4.9 mEq/L (3.7-5.4); SODIUM 141 mEq/L (136-147)
[2016-11-29 07:03] LABS: GLUCOSE 90 mg/dL (70-99)
[2016-11-29 07:04] LABS: ANION GAP 18 MEQ/L (2-14)
[2016-11-29 07:05] LABS: TOTAL BILIRUBIN 0.3 mg/dL (0.0-1.0)
[2016-11-29 07:06] LABS: ALKALINE PHOSPHATASE 177 IU/L (3-129)
[2016-11-29 07:07] LABS: GFR ESTIMATE (CALCULATED) 7 mL/min/
[2016-11-29 07:08] LABS: UREA NITROGEN (BUN) 41 mg/dL (9-23)
[2016-11-29 07:16] LABS: TROP-I INTERPRETATION NEGATIVE; TROPONIN-I 0.04 ng/mL (0.0-0.30)
[2016-11-29 09:02] VITALS: BP 148/96
== END 2016-11-29 09:03 | disposition left against medical advice (07) ==
LOC: EME → EDBD 06:28 → EME 09:03
PROVIDERS: Emergency Medicine
DX: R07.9 Chest pain, unspecified (principal); I12.0 Hypertensive chronic kidney disease with stage 5 chronic kidney disease or end stage renal disease; N18.6 End stage renal disease; Z99.2 Dependence on renal dialysis; I25.2 Old myocardial infarction; J44.9 Chronic obstructive pulmonary disease, unspecified; Z79.82 Long term (current) use of aspirin; F17.200 Nicotine dependence, unspecified, uncomplicated; Z53.20 Procedure and treatment not carried out because of patient's decision for unspecified reasons
CPT/HCPCS: 71010; 80053; 84484; 85025; 85610; 85730; 93005; 99281; 99285

== ENCOUNTER 2016-12-19 03:41 | Observation (INO) | payer OTHER ==
[~2016-12-19] VITALS: Ht 157.5 cm; Wt 45.3 kg
[2016-12-19 04:55] LABS: INTER. NORMALIZED RATIO 1.2; PROTHROMBIN TIME 12.7 SEC (10.2-12.9)
[2016-12-19 04:57] LABS: PTT 33.4 SEC (25-37)
[2016-12-19 05:56] LABS: CHLORIDE 96 mEq/L (99-109); POTASSIUM 4.6 mEq/L (3.7-5.4); SODIUM 138 mEq/L (136-147)
[2016-12-19 05:57] LABS: GLUCOSE 97 mg/dL (70-99)
[2016-12-19 05:59] LABS: ANION GAP 14 MEQ/L (2-14)
[2016-12-19 06:01] LABS: GFR ESTIMATE (CALCULATED) 9 mL/min/
[2016-12-19 06:02] LABS: UREA NITROGEN (BUN) 32 mg/dL (9-23)
[2016-12-19 06:08] LABS: BASOPHIL COUNT 0.1 K/uL (0-0.1); EOSINOPHIL (%) 1.8 % (0-5); EOSINOPHIL COUNT 0.1 K/uL (0-0.3); HEMATOCRIT 36.5 % (36.0-46.0); IMMATURE GRANULOCYTE (%) 0.6 % (0.0-0.7); INSTRUMENT ABS NEUTROPHIL CT 5.2 K/uL; MCH 32.7 PG (29.0-34.0); MCHC 31.8 G/DL (30.0-36.0); MCV 102.8 FL (83-99); MONOCYTE (%) 9.9 % (3-12); MONOCYTE COUNT 0.7 K/uL (0-0.8); NEUTROPHIL (%) 73.2 % (45-76); NEUTROPHIL COUNT 5.2 K/uL (1.8-6.4); PLATELET COUNT 125 K/uL (156-360); RBC DIS.WIDTH-CV 15.3 % (11.8-14.6); RBC DIS.WIDTH-SD 57.2 % (39-53); RED BLOOD COUNT 3.55 M/uL (3.80-5.20); WHITE BLOOD COUNT 7.1 K/uL (4.1-10.2)
[2016-12-19 06:10] LABS: TROP-I INTERPRETATION NEGATIVE
[2016-12-19 10:29] VITALS: BP 98/50
[2016-12-19 11:12] VITALS: BP 105/69
[2016-12-19] MEDS ORDERED: TOPROL XL50 MG PO (12:06)
[2016-12-19] MEDS ORDERED: RENVELA0.8 GM PO (12:07)
[2016-12-19] MEDS ORDERED: SENSIPAR60 MG PO (12:08)
[2016-12-19] MEDS ORDERED: ZESTRIL40 MG PO (12:08)
[2016-12-19] MEDS ORDERED: RENAL-VITE TAB0.8 MG PO (12:09)
[2016-12-19 13:36] LABS: TROP-I INTERPRETATION NEGATIVE; TROPONIN-I 0.09 ng/mL (0.0-0.30)
[2016-12-19 15:25] VITALS: BP 96/50
[2016-12-19 17:54] VITALS: BP 96/62
[2016-12-19 18:14] LABS: TROP-I INTERPRETATION NEGATIVE; TROPONIN-I 0.11 ng/mL (0.0-0.30)
== END 2016-12-19 18:50 | disposition left against medical advice (07) ==
LOC: EME → EDBD 03:41 → EDOF 07:33 → ENRESERV 07:36 → 5WEST 10:25
PROVIDERS: Emergency Medicine; Internal Medicine
DX: R07.9 Chest pain, unspecified (principal); I13.2 Hypertensive heart and chronic kidney disease with heart failure and with stage 5 chronic kidney disease, or end stage renal disease; I50.32 Chronic diastolic (congestive) heart failure; N18.6 End stage renal disease; Z99.2 Dependence on renal dialysis; I48.0 Paroxysmal atrial fibrillation; I25.10 Atherosclerotic heart disease of native coronary artery without angina pectoris; I25.2 Old myocardial infarction; G40.909 Epilepsy, unspecified, not intractable, without status epilepticus; J44.9 Chronic obstructive pulmonary disease, unspecified; F17.200 Nicotine dependence, unspecified, uncomplicated; Z91.14 Patient's other noncompliance with medication regimen; I34.0 Nonrheumatic mitral (valve) insufficiency; I27.20 Pulmonary hypertension, unspecified; D69.6 Thrombocytopenia, unspecified; D64.9 Anemia, unspecified; Z87.820 Personal history of traumatic brain injury; Z88.0 Allergy status to penicillin; Z88.8 Allergy status to other drugs, medicaments and biological substances; Z82.49 Family history of ischemic heart disease and other diseases of the circulatory system
CPT/HCPCS: 71010; 80048; 84484; 85025; 85610; 85730; 93005; 93306; 99281; 99285; G0378; J1644; J3010; J7030

== ENCOUNTER 2016-12-31 21:11 | Inpatient (IN) | payer OTHER ==
[~2016-12-31] VITALS: Ht 144.8 cm; Wt 60.1 kg
[~2016-12-31 21:11] MED LIST changes: -LIPITOR80 MG PO; -LOW DOSE ASPIRI81 M1 PO; +RENAL-VITE TAB0.8 MG PO; -TYLENOL REGULA325 MG PO; -VENTOLIN HFA18 GM IH
[2016-12-31 21:40] LABS: HEMATOCRIT 35.5 % (36.0-46.0); MCH 32.6 PG (29.0-34.0); MCHC 31.3 G/DL (30.0-36.0); MCV 104.1 FL (83-99); MEAN PLAT.VOLUME 12.3 uM^3 (9.5-12.4); PLATELET COUNT 147 K/uL (156-360); RBC DIS.WIDTH-CV 16.3 % (11.8-14.6); RED BLOOD COUNT 3.41 M/uL (3.80-5.20); WHITE BLOOD COUNT 6.6 K/uL (4.1-10.2)
[2016-12-31 21:48] LABS: INTER. NORMALIZED RATIO 1.1; PROTHROMBIN TIME 12.6 SEC (10.2-12.9)
[2016-12-31 21:49] LABS: CHLORIDE 96 mEq/L (99-109); SODIUM 140 mEq/L (136-147)
[2016-12-31 21:50] LABS: GLUCOSE 87 mg/dL (70-99); PTT 31.8 SEC (25-37)
[2016-12-31 21:52] LABS: ANION GAP 18 MEQ/L (2-14)
[2016-12-31 21:54] LABS: GFR ESTIMATE (CALCULATED) 5 mL/min/
[2016-12-31 21:55] LABS: UREA NITROGEN (BUN) 60 mg/dL (9-23)
[2016-12-31 21:59] LABS: POTASSIUM 6.3 mEq/L (3.7-5.4)
[2016-12-31 22:03] LABS: TROP-I INTERPRETATION NEGATIVE; TROPONIN-I 0.25 ng/mL (0.0-0.30)
[2017-01-01] VITALS (7 sets, daily range): BP systolic 92–117; BP diastolic 52–78
[2017-01-01 06:08] LABS: TROP-I INTERPRETATION INDETERMINATE; TROPONIN-I 0.44 ng/mL (0.0-0.30)
[2017-01-01 08:34] LABS: EOSINOPHIL (%) 0.8 % (0-5); EOSINOPHIL COUNT 0.1 K/uL (0-0.3); HEMATOCRIT 30.1 % (36.0-46.0); IMMATURE GRANULOCYTE (%) 0.4 % (0.0-0.7); INSTRUMENT ABS NEUTROPHIL CT 6.5 K/uL; MCH 33.1 PG (29.0-34.0); MCHC 31.6 G/DL (30.0-36.0); MCV 104.9 FL (83-99); MEAN PLAT.VOLUME 12.5 uM^3 (9.5-12.4); MONOCYTE (%) 9.9 % (3-12); MONOCYTE COUNT 0.8 K/uL (0-0.8); NEUTROPHIL (%) 76.8 % (45-76); NEUTROPHIL COUNT 6.5 K/uL (1.8-6.4); PLATELET COUNT 130 K/uL (156-360); RBC DIS.WIDTH-CV 16.2 % (11.8-14.6); RBC DIS.WIDTH-SD 61.3 % (39-53); RED BLOOD COUNT 2.87 M/uL (3.80-5.20); WHITE BLOOD COUNT 8.5 K/uL (4.1-10.2)
[2017-01-01 08:53] LABS: ANION GAP 17 MEQ/L (2-14); CHLORIDE 97 MEQ/L (99-109); GFR ESTIMATE (CALCULATED) 5 mL/min/; GLUCOSE 88 mg/dL (70-99); POTASSIUM 6.1 MEQ/L (3.7-5.4); SAMPLE HEMOLYSIS CHECK 0; SAMPLE ICTERIC CHECK 0; SAMPLE LIPEMIA CHECK 0; SODIUM 140 MEQ/L (136-147); UREA NITROGEN (BUN) 60 mg/dL (9-23)
[2017-01-01 09:20] LABS: TROP-I INTERPRETATION POSITIVE; TROPONIN-I 0.86 ng/mL (0.0-0.30)
[2017-01-01] MEDS ORDERED: TOPROL XL50 MG PO (15:52)
[2017-01-01] MEDS ORDERED: TYLENOL REGULA325 MG PO (15:52)
[2017-01-01] MEDS ORDERED: RENVELA2.4 GM PO (15:52)
[2017-01-01] MEDS ORDERED: VENTOLIN HFA18 GM IH (15:52)
[2017-01-01] MEDS ORDERED: LIPITOR80 MG PO (15:52)
[2017-01-01] MEDS ORDERED: LIDOCAINE-PRIL1 EACH TP (15:52)
[2017-01-01] MEDS ORDERED: LOW DOSE ASPIRI81 M1 PO (15:52)
[2017-01-01] MEDS ORDERED: SENSIPAR60 MG PO (15:52)
[2017-01-01] MEDS ORDERED: DILANTIN100 MG PO (15:52)
[2017-01-01] MEDS ORDERED: NITROGLYCERIN0.4 MG SL (15:55)
[2017-01-01] MEDS ORDERED: AMLODIPINE BESY10 MG PO (15:56)
[2017-01-01] MEDS ORDERED: DILTIAZEM 24HR120 MG PO (15:56)
[2017-01-01] MEDS ORDERED: RANITIDINE HCL150 MG PO (15:56)
[2017-01-01 17:24] LABS: TROP-I INTERPRETATION POSITIVE; TROPONIN-I 6.58 ng/mL (0.0-0.30)
[2017-01-01 22:28] LABS: TROP-I INTERPRETATION POSITIVE; TROPONIN-I 9.13 ng/mL (0.0-0.30)
[2017-01-02 03:22] LABS: HEMATOCRIT 27.5 % (36.0-46.0); MCH 31.8 PG (29.0-34.0); MCHC 30.5 G/DL (30.0-36.0); MCV 104.2 FL (83-99); MEAN PLAT.VOLUME 11.6 uM^3 (9.5-12.4); PLATELET COUNT 115 K/uL (156-360); RBC DIS.WIDTH-SD 60.6 % (39-53); RED BLOOD COUNT 2.64 M/uL (3.80-5.20); WHITE BLOOD COUNT 6.7 K/uL (4.1-10.2)
[2017-01-02 03:36] LABS: CHLORIDE 98 mEq/L (99-109); SODIUM 140 mEq/L (136-147)
[2017-01-02 03:37] LABS: MAGNESIUM 2.5 mg/dL (1.3-2.7)
[2017-01-02 03:38] LABS: GLUCOSE 91 mg/dL (70-99)
[2017-01-02 03:39] LABS: ANION GAP 19 MEQ/L (2-14)
[2017-01-02 03:40] LABS: POTASSIUM 4.7 mEq/L (3.7-5.4)
[2017-01-02 03:42] LABS: GFR ESTIMATE (CALCULATED) 9 mL/min/
[2017-01-02 03:45] LABS: UREA NITROGEN (BUN) 25 mg/dL (9-23)
[2017-01-02 04:08] VITALS: BP 97/52
[2017-01-02 06:51] VITALS: BP 133/88
[2017-01-02 11:02] VITALS: BP 107/69
[2017-01-02 15:06] VITALS: BP 114/67
[2017-01-02 20:19] VITALS: BP 96/52
[2017-01-03 12:00] LABS: CREATININE 8.7 mg/dL (0.6-1.3); POTASSIUM 5.9 mEq/L (3.7-5.4)
== END 2017-01-02 23:44 | disposition short-term general hospital (02) | DRG 280 ==
LOC: EME → EDBD 21:11 → EME 21:11 → EDOF 23:33 → 4EAST 23:33 → ENRESERV 23:35 → 4EAST 01-01 00:54
PROVIDERS: Emergency Medicine; Hospitalist; Internal Medicine; Internal Medicine Nephrology
PROC: 5A1D70Z Performance of Urinary Filtration, Intermittent, Less than 6 Hours Per Day (ICD-10-PCS; principal; 2017-01-01)
DX: I13.2 Hypertensive heart and chronic kidney disease with heart failure and with stage 5 chronic kidney disease, or end stage renal disease (principal); I50.32 Chronic diastolic (congestive) heart failure; N18.6 End stage renal disease; I21.4 Non-ST elevation (NSTEMI) myocardial infarction; E87.5 Hyperkalemia; D63.1 Anemia in chronic kidney disease; E83.39 Other disorders of phosphorus metabolism; I08.1 Rheumatic disorders of both mitral and tricuspid valves; I27.20 Pulmonary hypertension, unspecified; N25.81 Secondary hyperparathyroidism of renal origin; I48.0 Paroxysmal atrial fibrillation; I25.119 Atherosclerotic heart disease of native coronary artery with unspecified angina pectoris; J44.9 Chronic obstructive pulmonary disease, unspecified; K21.9 Gastro-esophageal reflux disease without esophagitis; G43.909 Migraine, unspecified, not intractable, without status migrainosus; I95.9 Hypotension, unspecified; S06.9X0S Unspecified intracranial injury without loss of consciousness, sequela; V89.2XXS Person injured in unspecified motor-vehicle accident, traffic, sequela; F39 Unspecified mood [affective] disorder; G40.909 Epilepsy, unspecified, not intractable, without status epilepticus; F71 Moderate intellectual disabilities; I25.2 Old myocardial infarction; Z82.49 Family history of ischemic heart disease and other diseases of the circulatory system; Z91.15 Patient's noncompliance with renal dialysis; Z99.2 Dependence on renal dialysis; Z79.82 Long term (current) use of aspirin; Z88.0 Allergy status to penicillin; Z87.891 Personal history of nicotine dependence
CPT/HCPCS: 71020; 80047; 80048; 80069; 83735; 84484; 85025; 85027; 85610; 85730; 93005; 94640; 94799; 99281; 99285; J0610; J1644; J2270; J2405; J7050

== ENCOUNTER 2017-02-02 14:23 | Inpatient (IN) | payer OTHER ==
[~2017-02-02] VITALS: Ht 149.9 cm; Wt 52.0 kg
[~2017-02-02 14:23] MED LIST changes: +DILTIAZEM 24HR120 MG PO; +LIPITOR80 MG PO; +LOW DOSE ASPIRI81 M1 PO; +NITROGLYCERIN0.4 MG SL; +RANITIDINE HCL150 MG PO; +TOPROL XL25 MG PO; +TYLENOL REGULA325 MG PO; +VENTOLIN HFA18 GM IH
[2017-02-02 15:01] LABS: BASOPHIL COUNT 0.1 K/uL (0-0.1); EOSINOPHIL (%) 1.5 % (0-5); EOSINOPHIL COUNT 0.1 K/uL (0-0.3); HEMATOCRIT 28.4 % (36.0-46.0); IMMATURE GRANULOCYTE (%) 0.7 % (0.0-0.7); IMMATURE GRANULOCYTE COUNT 0.1 K/uL; INSTRUMENT ABS NEUTROPHIL CT 5.8 K/uL; LYMPHOCYTE COUNT 0.5 K/uL (1.0-2.8); MCH 29.7 PG (29.0-34.0); MCHC 30.3 G/DL (30.0-36.0); MCV 97.9 FL (83-99); MEAN PLAT.VOLUME 10.7 uM^3 (9.5-12.4); MONOCYTE (%) 8.9 % (3-12); MONOCYTE COUNT 0.6 K/uL (0-0.8); NEUTROPHIL (%) 81.1 % (45-76); NEUTROPHIL COUNT 5.8 K/uL (1.8-6.4); PLATELET COUNT 140 K/uL (156-360); RBC DIS.WIDTH-CV 19.1 % (11.8-14.6); RBC DIS.WIDTH-SD 66.6 % (39-53); WHITE BLOOD COUNT 7.2 K/uL (4.1-10.2)
[2017-02-02 15:12] LABS: CHLORIDE 98 mEq/L (99-109); SODIUM 144 mEq/L (136-147)
[2017-02-02 15:14] LABS: GLUCOSE 104 mg/dL (70-99)
[2017-02-02 15:16] LABS: ANION GAP 12 MEQ/L (2-14); TOTAL BILIRUBIN 0.5 mg/dL (0.0-1.0)
[2017-02-02 15:18] LABS: ALKALINE PHOSPHATASE 114 IU/L (3-129); GFR ESTIMATE (CALCULATED) 19 mL/min/
[2017-02-02 15:19] LABS: UREA NITROGEN (BUN) 21 mg/dL (9-23)
[2017-02-02 15:27] LABS: TROP-I INTERPRETATION INDETERMINATE; TROPONIN-I 0.35 ng/mL (0.0-0.30)
[2017-02-02] MEDS ORDERED: COUMADIN2 MG PO (17:07)
[2017-02-02] MEDS ORDERED: OXYCODONE HCL5 MG PO (17:07)
[2017-02-02 17:32] LABS: INTER. NORMALIZED RATIO 1.3; PROTHROMBIN TIME 14.8 SEC (10.2-12.9)
[2017-02-02 19:17] VITALS: BP 129/68
[2017-02-02 23:46] VITALS: BP 157/93
[2017-02-03 03:56] VITALS: BP 148/78
[2017-02-03 06:32] LABS: ANION GAP 11 MEQ/L (2-14); CHLORIDE 99 MEQ/L (99-109); GLUCOSE 140 mg/dL (70-99); SAMPLE HEMOLYSIS CHECK 0; SAMPLE ICTERIC CHECK 0; SAMPLE LIPEMIA CHECK 0; SODIUM 142 MEQ/L (136-147)
[2017-02-03 06:33] LABS: GFR ESTIMATE (CALCULATED) 12 mL/min/; UREA NITROGEN (BUN) 34 mg/dL (9-23)
[2017-02-03 06:34] LABS: POTASSIUM 3.8 MEQ/L (3.7-5.4)
[2017-02-03 07:20] VITALS: BP 130/84
[2017-02-03 11:46] VITALS: BP 123/73
[2017-02-03 15:54] VITALS: BP 121/73
[2017-02-03 19:40] VITALS: BP 122/72
[2017-02-04 00:53] VITALS: BP 116/55
[2017-02-04 04:10] VITALS: BP 118/58
[2017-02-04 06:10] LABS: HEMATOCRIT 24.3 % (36.0-46.0); MCHC 31.3 G/DL (30.0-36.0); MEAN PLAT.VOLUME 12.3 uM^3 (9.5-12.4); PLATELET COUNT 143 K/uL (156-360); RBC DIS.WIDTH-CV 19.3 % (11.8-14.6); RBC DIS.WIDTH-SD 66.6 % (39-53); RED BLOOD COUNT 2.53 M/uL (3.80-5.20); WHITE BLOOD COUNT 12.7 K/uL (4.1-10.2)
[2017-02-04 06:31] LABS: ANION GAP 13 MEQ/L (2-14); CHLORIDE 96 MEQ/L (99-109); GFR ESTIMATE (CALCULATED) 9 mL/min/; GLUCOSE 141 mg/dL (70-99); SAMPLE HEMOLYSIS CHECK 0; SAMPLE ICTERIC CHECK 0; SAMPLE LIPEMIA CHECK 0; SODIUM 142 MEQ/L (136-147); UREA NITROGEN (BUN) 47 mg/dL (9-23)
[2017-02-04 07:48] VITALS: BP 117/59
[2017-02-04 11:07] VITALS: BP 97/64
[2017-02-04 15:04] LABS: INTER. NORMALIZED RATIO 1.3; PROTHROMBIN TIME 14.9 SEC (10.2-12.9)
[2017-02-04 16:10] VITALS: BP 121/56
[2017-02-04 20:00] VITALS: BP 107/57
[2017-02-05] VITALS: BP 111/66
[2017-02-05 04:02] VITALS: BP 119/59
[2017-02-05 05:56] LABS: HEMATOCRIT 24.2 % (36.0-46.0); MCH 29.2 PG (29.0-34.0); MCHC 30.6 G/DL (30.0-36.0); MCV 95.7 FL (83-99); MEAN PLAT.VOLUME 11.9 uM^3 (9.5-12.4); PLATELET COUNT 141 K/uL (156-360); RBC DIS.WIDTH-CV 19.2 % (11.8-14.6); RBC DIS.WIDTH-SD 65.7 % (39-53); RED BLOOD COUNT 2.53 M/uL (3.80-5.20); WHITE BLOOD COUNT 10.8 K/uL (4.1-10.2)
[2017-02-05 06:07] LABS: INTER. NORMALIZED RATIO 1.3; PROTHROMBIN TIME 14.6 SEC (10.2-12.9)
[2017-02-05 08:00] VITALS: BP 126/72
[2017-02-05 08:07] LABS: EOSINOPHIL (%) 0 % (0-5); HEMATOCRIT 24.7 % (36.0-46.0); IMMATURE GRANULOCYTE (%) 0.9 % (0.0-0.7); IMMATURE GRANULOCYTE COUNT 0.1 K/uL; INSTRUMENT ABS NEUTROPHIL CT 10.9 K/uL; LYMPHOCYTE COUNT 0.2 K/uL (1.0-2.8); MCH 29.7 PG (29.0-34.0); MCHC 31.2 G/DL (30.0-36.0); MCV 95.4 FL (83-99); MEAN PLAT.VOLUME 12.2 uM^3 (9.5-12.4); MONOCYTE (%) 2.2 % (3-12); MONOCYTE COUNT 0.3 K/uL (0-0.8); NEUTROPHIL (%) 95.2 % (45-76); NEUTROPHIL COUNT 10.9 K/uL (1.8-6.4); PLATELET COUNT 146 K/uL (156-360); RBC DIS.WIDTH-CV 19.2 % (11.8-14.6); RBC DIS.WIDTH-SD 65.1 % (39-53); RED BLOOD COUNT 2.59 M/uL (3.80-5.20); WHITE BLOOD COUNT 11.4 K/uL (4.1-10.2)
[2017-02-05 08:17] LABS: ANION GAP 13 MEQ/L (2-14); CHLORIDE 94 MEQ/L (99-109); POTASSIUM 4.2 MEQ/L (3.7-5.4); SAMPLE HEMOLYSIS CHECK 0; SAMPLE ICTERIC CHECK 0; SAMPLE LIPEMIA CHECK 0; SODIUM 137 MEQ/L (136-147)
[2017-02-05 08:23] LABS: GFR ESTIMATE (CALCULATED) 7 mL/min/; GLUCOSE 155 mg/dL (70-99); UREA NITROGEN (BUN) 67 mg/dL (9-23)
[2017-02-05 16:26] VITALS: BP 112/65
[2017-02-05 19:30] VITALS: BP 106/59
[2017-02-05 23:40] VITALS: BP 123/70
[2017-02-06 00:46] VITALS: BP 112/62
[2017-02-06 03:30] VITALS: BP 126/66
[2017-02-06 06:01] LABS: INTER. NORMALIZED RATIO 1.4; PROTHROMBIN TIME 16.6 SEC (10.2-12.9)
[2017-02-06 08:03] VITALS: BP 118/66
[2017-02-06 10:55] VITALS: BP 113/59
[2017-02-06] MEDS ORDERED: CARDIZEM60 MG PO (11:49)
[2017-02-06] MEDS ORDERED: PREDNISONE5 M1 PO (11:53)
== END 2017-02-06 12:37 | disposition home health service (06) | DRG 280 ==
LOC: EME 14:23 → EDOF 16:55 → 2EAST 16:55 → ENRESERV 16:57 → 2EAST 19:07
PROVIDERS: Emergency Medicine; Hospitalist; Internal Medicine Cardiovascular Disease; Internal Medicine Nephrology
PROC: 0W9B3ZZ Drainage of Left Pleural Cavity, Percutaneous Approach (ICD-10-PCS; principal; 2017-02-03)
PROC: 5A1D70Z Performance of Urinary Filtration, Intermittent, Less than 6 Hours Per Day (ICD-10-PCS; 2017-02-05)
DX: I97.0 Postcardiotomy syndrome (principal); J44.1 Chronic obstructive pulmonary disease with (acute) exacerbation; J96.21 Acute and chronic respiratory failure with hypoxia; I13.2 Hypertensive heart and chronic kidney disease with heart failure and with stage 5 chronic kidney disease, or end stage renal disease; I50.32 Chronic diastolic (congestive) heart failure; N18.6 End stage renal disease; I21.4 Non-ST elevation (NSTEMI) myocardial infarction; R56.1 Post traumatic seizures; I27.20 Pulmonary hypertension, unspecified; N25.81 Secondary hyperparathyroidism of renal origin; E83.39 Other disorders of phosphorus metabolism; I25.10 Atherosclerotic heart disease of native coronary artery without angina pectoris; I48.0 Paroxysmal atrial fibrillation; D63.1 Anemia in chronic kidney disease; E78.5 Hyperlipidemia, unspecified; K21.9 Gastro-esophageal reflux disease without esophagitis; F71 Moderate intellectual disabilities; F39 Unspecified mood [affective] disorder; Z87.820 Personal history of traumatic brain injury; Z95.1 Presence of aortocoronary bypass graft; Z95.2 Presence of prosthetic heart valve; Z99.2 Dependence on renal dialysis; Z99.81 Dependence on supplemental oxygen; Z79.01 Long term (current) use of anticoagulants; Z87.891 Personal history of nicotine dependence; Z91.14 Patient's other noncompliance with medication regimen; Z91.19 Patient's noncompliance with other medical treatment and regimen
CPT/HCPCS: 71010; 76942; 80048; 80053; 80069; 83880; 84484; 85025; 85027; 85610; 93005; 94640; 94640 76; 94644; 94799; 99202; 99281; 99285; J0881; J1200; J1644; J1756; J2930; J7512

== ENCOUNTER 2017-02-12 13:17 | Inpatient (IN) | payer OTHER ==
[~2017-02-12] VITALS: Ht 144.8 cm; Wt 60.1 kg
[~2017-02-12 13:17] MED LIST changes: +CARDIZEM60 MG PO; +COUMADIN2 MG PO; +OXYCODONE HCL5 MG PO; +PREDNISONE5 M1 PO
[2017-02-12 14:48] LABS: CARBON DIOXIDE (BICARBONATE) 33.3 MEQ/L (20-31)
[2017-02-12 14:54] LABS: INTER. NORMALIZED RATIO 1.3; PROTHROMBIN TIME 14.2 SEC (10.2-12.9)
[2017-02-12 14:56] LABS: HEMATOCRIT 30.3 % (36.0-46.0); MCH 31.1 PG (29.0-34.0); MCV 99.3 FL (83-99); RBC DIS.WIDTH-CV 21.2 % (11.8-14.6); RBC DIS.WIDTH-SD 74.2 % (39-53); RED BLOOD COUNT 3.02 M/uL (3.80-5.20); WHITE BLOOD COUNT 8.1 K/uL (4.1-10.2)
[2017-02-12 14:57] LABS: CHLORIDE 99 mEq/L (99-109); POTASSIUM 4.9 mEq/L (3.7-5.4); PTT 29.9 SEC (25-37); SODIUM 141 mEq/L (136-147)
[2017-02-12 14:59] LABS: GLUCOSE 102 mg/dL (70-99)
[2017-02-12 15:00] LABS: ANION GAP 16 MEQ/L (2-14)
[2017-02-12 15:03] LABS: GFR ESTIMATE (CALCULATED) 6 mL/min/; UREA NITROGEN (BUN) 67 mg/dL (9-23)
[2017-02-12 15:09] LABS: TROP-I INTERPRETATION INDETERMINATE; TROPONIN-I 0.43 ng/mL (0.0-0.30)
[2017-02-12 15:39] LABS: MEAN PLAT.VOLUME 12.1 uM^3 (9.5-12.4); PLAT.SUFFICIENCY DECREASED; PLATELET COUNT 92 K/uL (156-360)
[2017-02-12 17:06] LABS: TYPE OF FLUID PLEURAL
[2017-02-12 17:20] LABS: BODY FLUID RBC'S 32000 /MM^3 (0-100); BODY FLUID WBC'S 876 /MM^3 (0-500)
[2017-02-12] MEDS ORDERED: WARFARIN SODIUM1 MG PO (17:36)
[2017-02-12] MEDS ORDERED: METOPROLOL SUCC25 MG PO (17:38)
[2017-02-12 18:02] LABS: BODY FLUID LDH 118 IU/L
[2017-02-12 18:12] LABS: BODY FLUID PROTEIN < 3.0 G/DL
[2017-02-12 18:47] LABS: BODY FLUID EOSINOPHILS 0 % (0-25); MONO RAW COUNT 35; MONONUCLEAR WBC'S 35 %; POLY RAW COUNT 65; POLYNUCLEAR WBC'S 65 % (0-25)
[2017-02-12 18:48] LABS: COMMENT MANY MACROPHAGES SEE
[2017-02-12 20:46] VITALS: BP 140/85
[2017-02-12 21:27] LABS: TROP-I INTERPRETATION INDETERMINATE; TROPONIN-I 0.43 ng/mL (0.0-0.30)
[2017-02-12 22:39] VITALS: BP 106/74
[2017-02-12 23:16] LABS: INTER. NORMALIZED RATIO 1.3; PROTHROMBIN TIME 14.8 SEC (10.2-12.9)
[2017-02-12 23:19] LABS: PTT 29.1 SEC (25-37)
[2017-02-12 23:50] VITALS: BP 121/79
[2017-02-13 02:15] VITALS: BP 116/81
[2017-02-13 03:00] LABS: TROP-I INTERPRETATION INDETERMINATE; TROPONIN-I 0.41 ng/mL (0.0-0.30)
[2017-02-13 05:51] LABS: HEMATOCRIT 25.9 % (36.0-46.0); MCH 31.8 PG (29.0-34.0); MCHC 31.7 G/DL (30.0-36.0); MCV 100.4 FL (83-99); MEAN PLAT.VOLUME 12.5 uM^3 (9.5-12.4); PLATELET COUNT 76 K/uL (156-360); RBC DIS.WIDTH-CV 21.1 % (11.8-14.6); RBC DIS.WIDTH-SD 72.6 % (39-53); RED BLOOD COUNT 2.58 M/uL (3.80-5.20); WHITE BLOOD COUNT 8.2 K/uL (4.1-10.2)
[2017-02-13 07:20] LABS: ANION GAP 18 MEQ/L (2-14); CHLORIDE 101 MEQ/L (99-109); GFR ESTIMATE (CALCULATED) 5 mL/min/; GLUCOSE 89 mg/dL (70-99); POTASSIUM 5.5 MEQ/L (3.7-5.4); SAMPLE HEMOLYSIS CHECK 0; SAMPLE ICTERIC CHECK 0; SAMPLE LIPEMIA CHECK 0; SODIUM 144 MEQ/L (136-147); UREA NITROGEN (BUN) 73 mg/dL (9-23)
[2017-02-13 07:25] VITALS: BP 93/54
[2017-02-13 09:07] LABS: MAGNESIUM 2.4 mg/dl (1.3-2.7)
[2017-02-13 10:31] LABS: TROP-I INTERPRETATION INDETERMINATE; TROPONIN-I 0.52 ng/mL (0.0-0.30)
[2017-02-13 13:13] VITALS: BP 105/74
[2017-02-13 15:43] VITALS: BP 107/56
[2017-02-13 19:30] VITALS: BP 109/63
[2017-02-13 23:15] VITALS: BP 120/59
[2017-02-14] VITALS (7 sets, daily range): BP systolic 92–153; BP diastolic 50–67
[2017-02-14 05:24] LABS: HEMATOCRIT 28.8 % (36.0-46.0); MCHC 30.6 G/DL (30.0-36.0); MCV 101.4 FL (83-99); MEAN PLAT.VOLUME 13.1 uM^3 (9.5-12.4); PLATELET COUNT 85 K/uL (156-360); RBC DIS.WIDTH-CV 21.6 % (11.8-14.6); RED BLOOD COUNT 2.84 M/uL (3.80-5.20); WHITE BLOOD COUNT 6.2 K/uL (4.1-10.2)
[2017-02-14 05:30] LABS: EOSINOPHIL (%) 0.2 % (0-5); IMMATURE GRANULOCYTE (%) 0.6 % (0.0-0.7); INSTRUMENT ABS NEUTROPHIL CT 5.9 K/uL; LYMPHOCYTE COUNT 0.2 K/uL (1.0-2.8); MONOCYTE (%) 1.1 % (3-12); MONOCYTE COUNT 0.1 K/uL (0-0.8); NEUTROPHIL (%) 94.7 % (45-76); NEUTROPHIL COUNT 5.9 K/uL (1.8-6.4)
[2017-02-14 06:07] LABS: ALKALINE PHOSPHATASE 93 IU/L (3-129); ANION GAP 11 MEQ/L (2-14); CHLORIDE 103 MEQ/L (99-109); GFR ESTIMATE (CALCULATED) 12 mL/min/; GLUCOSE 137 mg/dL (70-99); SAMPLE HEMOLYSIS CHECK 0; SAMPLE ICTERIC CHECK 0; SAMPLE LIPEMIA CHECK 0; SODIUM 142 MEQ/L (136-147); TOTAL BILIRUBIN 0.4 MG/DL (0.0-1.0); UREA NITROGEN (BUN) 27 mg/dL (9-23)
[2017-02-14 16:09] LABS: INTER. NORMALIZED RATIO 1.4; PROTHROMBIN TIME 15.5 SEC (10.2-12.9)
[2017-02-14 16:15] LABS: IRON 33 MCG/DL (35-150)
[2017-02-15 03:00] VITALS: BP 115/59
[2017-02-15 06:06] LABS: EOSINOPHIL (%) 0 % (0-5); HEMATOCRIT 27.6 % (36.0-46.0); IMMATURE GRANULOCYTE (%) 0.7 % (0.0-0.7); IMMATURE GRANULOCYTE COUNT 0.1 K/uL; INSTRUMENT ABS NEUTROPHIL CT 7.2 K/uL; LYMPHOCYTE COUNT 0.5 K/uL (1.0-2.8); MCHC 31.2 G/DL (30.0-36.0); MCV 99.6 FL (83-99); MEAN PLAT.VOLUME 12.3 uM^3 (9.5-12.4); MONOCYTE (%) 9.6 % (3-12); MONOCYTE COUNT 0.8 K/uL (0-0.8); NEUTROPHIL (%) 83.5 % (45-76); NEUTROPHIL COUNT 7.2 K/uL (1.8-6.4); PLATELET COUNT 92 K/uL (156-360); RBC DIS.WIDTH-CV 21.1 % (11.8-14.6); RBC DIS.WIDTH-SD 75.5 % (39-53); RED BLOOD COUNT 2.77 M/uL (3.80-5.20); WHITE BLOOD COUNT 8.6 K/uL (4.1-10.2)
[2017-02-15 06:48] LABS: ALKALINE PHOSPHATASE 93 IU/L (3-129); ANION GAP 11 MEQ/L (2-14); CHLORIDE 103 MEQ/L (99-109); GLUCOSE 103 mg/dL (70-99); SAMPLE HEMOLYSIS CHECK 0; SAMPLE ICTERIC CHECK 0; SAMPLE LIPEMIA CHECK 0; SODIUM 144 MEQ/L (136-147); TOTAL BILIRUBIN 0.4 MG/DL (0.0-1.0); UREA NITROGEN (BUN) 20 mg/dL (9-23)
[2017-02-15 06:53] LABS: INTER. NORMALIZED RATIO 1.3; PROTHROMBIN TIME 14.9 SEC (10.2-12.9)
[2017-02-15 07:01] LABS: GFR ESTIMATE (CALCULATED) 17 mL/min/; POTASSIUM 3.8 MEQ/L (3.7-5.4)
[2017-02-15 08:20] VITALS: BP 110/55
[2017-02-15 12:15] VITALS: BP 123/63
[2017-02-15] MEDS ORDERED: Tums,OsCal PO (15:00)
[2017-02-15] MEDS ORDERED: CARDIZEM CD240 MG PO (15:00)
[2017-02-15] MEDS ORDERED: COUMADIN2.5 MG PO (15:00)
[2017-02-15] MEDS ORDERED: PREDNISONE5 MG PO (15:01)
== END 2017-02-15 15:40 | disposition home health service (06) | DRG 314 ==
LOC: EME 13:17 → EDOF 16:25 → ENRESERV 16:27 → CANRESERV 17:21 → ENRESERV 17:21 → EDOF 18:13 → ENRESERV 18:14 → 5WEST 20:00 → 4EAST 22:32 → 5WEST 22:32 → ENRESERV 22:35 → 4EAST 23:40
PROVIDERS: Emergency Medicine; Hospitalist; Physician Assistant; Student in an Organized Health Care Education/Training Program
PROC: 0W9B3ZZ Drainage of Left Pleural Cavity, Percutaneous Approach (ICD-10-PCS; principal; 2017-02-12)
PROC: 5A1D70Z Performance of Urinary Filtration, Intermittent, Less than 6 Hours Per Day (ICD-10-PCS; 2017-02-13)
DX: I97.0 Postcardiotomy syndrome (principal); J90 Pleural effusion, not elsewhere classified; J98.11 Atelectasis; R74.8 Abnormal levels of other serum enzymes; J96.21 Acute and chronic respiratory failure with hypoxia; I13.2 Hypertensive heart and chronic kidney disease with heart failure and with stage 5 chronic kidney disease, or end stage renal disease; I50.32 Chronic diastolic (congestive) heart failure; N18.6 End stage renal disease; D63.1 Anemia in chronic kidney disease; E83.39 Other disorders of phosphorus metabolism; E83.51 Hypocalcemia; G40.909 Epilepsy, unspecified, not intractable, without status epilepticus; I25.10 Atherosclerotic heart disease of native coronary artery without angina pectoris; I27.20 Pulmonary hypertension, unspecified; I48.2 Chronic atrial fibrillation; I87.8 Other specified disorders of veins; J44.9 Chronic obstructive pulmonary disease, unspecified; N25.81 Secondary hyperparathyroidism of renal origin; R79.1 Abnormal coagulation profile; T45.515A Adverse effect of anticoagulants, initial encounter; G43.909 Migraine, unspecified, not intractable, without status migrainosus; K21.9 Gastro-esophageal reflux disease without esophagitis; Z79.01 Long term (current) use of anticoagulants; I25.2 Old myocardial infarction; Z87.891 Personal history of nicotine dependence; Z91.15 Patient's noncompliance with renal dialysis; Z91.19 Patient's noncompliance with other medical treatment and regimen; Z95.1 Presence of aortocoronary bypass graft; Z95.3 Presence of xenogenic heart valve; Z99.2 Dependence on renal dialysis; Z99.81 Dependence on supplemental oxygen; Z88.0 Allergy status to penicillin
CPT/HCPCS: 71010; 71250; 76942; 78582; 80048; 80053; 82040; 82330; 82607; 82746; 82803; 82945; 83540; 83615 91; 83735; 84100; 84157; 84484; 85025; 85027; 85610; 85730; 87070; 87075; 87205; 88108; 88305; 89051; 93005; 94640; 94640 76; 94799; 99202; 99281; 99285; A9540; A9567; J0610; J0881; J1200; J1644; J7050; J7512

== ENCOUNTER 2017-02-18 04:51 | Inpatient (IN) | payer OTHER ==
[~2017-02-18] VITALS: Ht 139.7 cm; Wt 48.1 kg
[~2017-02-18 04:51] MED LIST changes: +CARDIZEM CD240 MG PO; +COUMADIN2.5 MG PO; +METOPROLOL SUCC25 MG PO; +PREDNISONE5 MG PO; +Tums,OsCal PO; +WARFARIN SODIUM1 MG PO
[2017-02-18 05:45] LABS: HEMATOCRIT 33.4 % (36.0-46.0); HEMOGLOBIN 10.2 G/DL (11.9-15.5); MCH 30.8 PG (29.0-34.0); MCHC 30.5 G/DL (30.0-36.0); MCV 100.9 FL (83-99); NRBC (%) 0.1 /100 WBC (0-0); PLATELET COUNT 100 K/uL (156-360); RBC DIS.WIDTH-CV 21.6 % (11.8-14.6); RBC DIS.WIDTH-SD 78.2 % (39-53); RED BLOOD COUNT 3.31 M/uL (3.80-5.20); WHITE BLOOD COUNT 13.8 K/uL (4.1-10.2)
[2017-02-18 05:52] LABS: INTER. NORMALIZED RATIO 1.2
[2017-02-18 05:55] LABS: ALBUMIN 2.9 g/dL (3.2-4.8); CHLORIDE 94 mEq/L (99-109); POTASSIUM 3.4 mEq/L (3.7-5.4); PTT 29.3 SEC (25-37); SODIUM 141 mEq/L (136-147)
[2017-02-18 05:57] LABS: GLUCOSE 100 mg/dL (70-99); TOTAL PROTEIN 5.5 g/dL (6.4-8.3)
[2017-02-18 05:59] LABS: TOTAL BILIRUBIN 0.3 mg/dL (0.0-1.0)
[2017-02-18 06:01] LABS: ALKALINE PHOSPHATASE 159 IU/L (3-129)
[2017-02-18 06:03] LABS: AST (GOT) 17 IU/L (2-34)
[2017-02-18 06:04] LABS: ALT (GPT) 11 IU/L (3-49); LIPASE 88 U/L (1.0-51.0)
[2017-02-18 06:05] LABS: TROP-I INTERPRETATION POSITIVE
[2017-02-18 06:14] LABS: CREATININE 4.2 mg/dL (0.6-1.3); GFR ESTIMATE (CALCULATED) 12 mL/min/; TROPONIN-I 0.99 ng/mL (0.0-0.30); UREA NITROGEN (BUN) 38 mg/dL (9-23)
[2017-02-18 07:45] VITALS: BP 151/95
[2017-02-18 08:30] VITALS: BP 151/95
[2017-02-18 12:14] VITALS: BP 113/66
[2017-02-18] MEDS ORDERED: COUMADIN1 MG PO (12:47)
[2017-02-18] MEDS ORDERED: LOPRESSOR25 MG PO (12:48)
[2017-02-18] MEDS ORDERED: ASPIRIN81 M2 PO (12:49)
[2017-02-18] MEDS ORDERED: LISINOPRIL40 MG PO (12:51)
[2017-02-18] MEDS ORDERED: SPIRIVA1 INHALATI IH (12:51)
[2017-02-18] MEDS ORDERED: RENVELA800 MG PO (12:52)
[2017-02-18] MEDS ORDERED: NORVASC10 MG PO (12:52)
[2017-02-18] MEDS ORDERED: ACID CONTROL150 MG PO (12:53)
[2017-02-18 13:34] LABS: TROP-I INTERPRETATION POSITIVE; TROPONIN-I 3.21 ng/mL (0.0-0.30)
[2017-02-18 16:00] VITALS: BP 112/64
[2017-02-18 19:26] VITALS: BP 105/62
[2017-02-18 20:08] LABS: TROP-I INTERPRETATION POSITIVE; TROPONIN-I 9.23 ng/mL (0.0-0.30)
[2017-02-18 23:31] VITALS: BP 99/62
[2017-02-19 04:49] VITALS: BP 100/74
[2017-02-19 06:17] LABS: HEMATOCRIT 29.3 % (36.0-46.0); HEMOGLOBIN 8.9 G/DL (11.9-15.5); MCH 31.1 PG (29.0-34.0); MCHC 30.4 G/DL (30.0-36.0); MCV 102.4 FL (83-99); PLATELET COUNT 99 K/uL (156-360); RBC DIS.WIDTH-CV 22.1 % (11.8-14.6); RBC DIS.WIDTH-SD 78.3 % (39-53); RED BLOOD COUNT 2.86 M/uL (3.80-5.20); WHITE BLOOD COUNT 10.9 K/uL (4.1-10.2)
[2017-02-19 06:48] LABS: INTER. NORMALIZED RATIO 1.5
[2017-02-19 06:56] LABS: CHLORIDE 97 MEQ/L (99-109); GLUCOSE 87 mg/dL (70-99); PHOSPHORUS 4.5 mg/dL (2.5-4.9); SODIUM 142 MEQ/L (136-147); UREA NITROGEN (BUN) 47 mg/dL (9-23)
[2017-02-19 07:00] LABS: CREATININE 5.2 MG/DL (0.6-1.3); GFR ESTIMATE (CALCULATED) 9 mL/min/; POTASSIUM 4.8 MEQ/L (3.7-5.4)
[2017-02-19 07:15] VITALS: BP 80/52
[2017-02-19 08:12] VITALS: BP 111/60
[2017-02-19 17:50] VITALS: BP 120/70
[2017-02-19 18:54] VITALS: BP 93/64
[2017-02-19 23:21] VITALS: BP 111/60
[2017-02-20 04:15] VITALS: BP 99/54
[2017-02-20 05:26] LABS: HEMATOCRIT 27.9 % (36.0-46.0); HEMOGLOBIN 8.6 G/DL (11.9-15.5); MCH 32.1 PG (29.0-34.0); MCHC 30.8 G/DL (30.0-36.0); MCV 104.1 FL (83-99); PLATELET COUNT 95 K/uL (156-360); RBC DIS.WIDTH-CV 23.1 % (11.8-14.6); RBC DIS.WIDTH-SD 84.9 % (39-53); RED BLOOD COUNT 2.68 M/uL (3.80-5.20)
[2017-02-20 05:43] LABS: CHLORIDE 100 mEq/L (99-109); POTASSIUM 4.7 mEq/L (3.7-5.4); SODIUM 141 mEq/L (136-147)
[2017-02-20 05:45] LABS: GLUCOSE 92 mg/dL (70-99)
[2017-02-20 05:48] LABS: CREATININE 4.5 mg/dL (0.6-1.3); GFR ESTIMATE (CALCULATED) 11 mL/min/; PHOSPHORUS 4.1 mg/dL (2.5-4.9)
[2017-02-20 05:49] LABS: UREA NITROGEN (BUN) 37 mg/dL (9-23)
[2017-02-20 08:00] VITALS: BP 107/59
[2017-02-20 11:10] VITALS: BP 103/61
[2017-02-20 16:11] VITALS: BP 133/72
[2017-02-20 19:12] VITALS: BP 104/56
[2017-02-21 00:10] VITALS: BP 118/55
[2017-02-21 05:19] VITALS: BP 102/55
[2017-02-21 05:32] LABS: BASOPHIL (%) 0.5 % (0-1); EOSINOPHIL (%) 2.2 % (0-5); EOSINOPHIL COUNT 0.2 K/uL (0-0.3); HEMATOCRIT 28.2 % (36.0-46.0); HEMOGLOBIN 8.3 G/DL (11.9-15.5); IMMATURE GRANULOCYTE (%) 0.4 % (0.0-0.7); LYMPHOCYTE (%) 9.7 % (15-42); LYMPHOCYTE COUNT 0.8 K/uL (1.0-2.8); MCH 30.6 PG (29.0-34.0); MCHC 29.4 G/DL (30.0-36.0); MCV 104.1 FL (83-99); MONOCYTE (%) 9.1 % (3-12); MONOCYTE COUNT 0.7 K/uL (0-0.8); NEUTROPHIL (%) 78.1 % (45-76); NEUTROPHIL COUNT 6.3 K/uL (1.8-6.4); PLATELET COUNT 108 K/uL (156-360); RBC DIS.WIDTH-CV 22.9 % (11.8-14.6); RBC DIS.WIDTH-SD 85.5 % (39-53); RED BLOOD COUNT 2.71 M/uL (3.80-5.20)
[2017-02-21 05:55] LABS: CHLORIDE 102 MEQ/L (99-109); CREATININE 3.4 MG/DL (0.6-1.3); GFR ESTIMATE (CALCULATED) 15 mL/min/; GLUCOSE 86 mg/dL (70-99); POTASSIUM 4.8 MEQ/L (3.7-5.4); SODIUM 141 MEQ/L (136-147); UREA NITROGEN (BUN) 33 mg/dL (9-23)
[2017-02-21 11:43] VITALS: BP 118/63
[2017-02-21 16:00] VITALS: BP 130/77
[2017-02-21 19:26] VITALS: BP 111/71
[2017-02-21 23:31] VITALS: BP 138/68
[2017-02-22 04:41] VITALS: BP 125/75
[2017-02-22 05:08] LABS: BASOPHIL (%) 0.4 % (0-1); EOSINOPHIL (%) 1.5 % (0-5); EOSINOPHIL COUNT 0.2 K/uL (0-0.3); HEMATOCRIT 32.2 % (36.0-46.0); HEMOGLOBIN 9.9 G/DL (11.9-15.5); IMMATURE GRANULOCYTE (%) 0.6 % (0.0-0.7); LYMPHOCYTE (%) 8.5 % (15-42); LYMPHOCYTE COUNT 0.9 K/uL (1.0-2.8); MCH 31.8 PG (29.0-34.0); MCHC 30.7 G/DL (30.0-36.0); MCV 103.5 FL (83-99); MONOCYTE (%) 8.6 % (3-12); MONOCYTE COUNT 0.9 K/uL (0-0.8); NEUTROPHIL (%) 80.4 % (45-76); NEUTROPHIL COUNT 8.7 K/uL (1.8-6.4); PLATELET COUNT 104 K/uL (156-360); RBC DIS.WIDTH-CV 23.3 % (11.8-14.6); RBC DIS.WIDTH-SD 86.4 % (39-53); RED BLOOD COUNT 3.11 M/uL (3.80-5.20); WHITE BLOOD COUNT 10.8 K/uL (4.1-10.2)
[2017-02-22 05:33] LABS: CHLORIDE 101 mEq/L (99-109); POTASSIUM 4.2 mEq/L (3.7-5.4); SODIUM 138 mEq/L (136-147)
[2017-02-22 05:35] LABS: GLUCOSE 82 mg/dL (70-99)
[2017-02-22 05:39] LABS: CREATININE 2.9 mg/dL (0.6-1.3); GFR ESTIMATE (CALCULATED) 18 mL/min/
[2017-02-22 05:40] LABS: UREA NITROGEN (BUN) 19 mg/dL (9-23)
[2017-02-22 07:16] VITALS: BP 123/74
[2017-02-22 11:45] VITALS: BP 99/62
[2017-02-22 15:48] VITALS: BP 102/56
[2017-02-22 23:44] VITALS: BP 109/56
[2017-02-23 03:46] VITALS: BP 101/54
[2017-02-23 05:18] LABS: BASOPHIL (%) 0.5 % (0-1); EOSINOPHIL (%) 2.2 % (0-5); EOSINOPHIL COUNT 0.2 K/uL (0-0.3); HEMATOCRIT 29.6 % (36.0-46.0); HEMOGLOBIN 8.8 G/DL (11.9-15.5); IMMATURE GRANULOCYTE (%) 0.4 % (0.0-0.7); LYMPHOCYTE COUNT 0.8 K/uL (1.0-2.8); MCHC 29.7 G/DL (30.0-36.0); MCV 104.2 FL (83-99); MONOCYTE (%) 10.6 % (3-12); MONOCYTE COUNT 0.8 K/uL (0-0.8); NEUTROPHIL (%) 76.3 % (45-76); NEUTROPHIL COUNT 5.9 K/uL (1.8-6.4); PLATELET COUNT 107 K/uL (156-360); RBC DIS.WIDTH-CV 23.4 % (11.8-14.6); RBC DIS.WIDTH-SD 88.2 % (39-53); RED BLOOD COUNT 2.84 M/uL (3.80-5.20); WHITE BLOOD COUNT 7.7 K/uL (4.1-10.2)
[2017-02-23 05:49] LABS: ALBUMIN 2.5 G/DL (3.2-4.8); CHLORIDE 103 MEQ/L (99-109); CREATININE 4.6 MG/DL (0.6-1.3); GFR ESTIMATE (CALCULATED) 10 mL/min/; GLUCOSE 89 mg/dL (70-99); PHOSPHORUS 3.2 mg/dL (2.5-4.9); POTASSIUM 4.8 MEQ/L (3.7-5.4); SODIUM 142 MEQ/L (136-147); UREA NITROGEN (BUN) 35 mg/dL (9-23)
[2017-02-23 07:55] VITALS: BP 108/61
[2017-02-23] MEDS ORDERED: TUMS500 MG PO (08:18)
[2017-02-23 12:00] VITALS: BP 109/81
[2017-02-23] MEDS ORDERED: ELIQUIS2.5 MG PO (15:09)
[2017-02-23] MEDS ORDERED: CARDIZEM CD,CA240 MG PO ×2 (15:09→15:27)
[2017-02-23] MEDS ORDERED: METOPROLOL SUCC25 MG PO ×2 (15:09→15:27)
[2017-02-23] MEDS ORDERED: LEVAQUIN500 MG PO (15:23)
== END 2017-02-23 16:09 | disposition home or self-care (01) | DRG 280 ==
LOC: EME → EDBD 04:51 → EDSEX 04:51 → EME 04:51 → 4EAST 06:17 → EDOF 06:17 → ENRESERV 06:17 → 4EAST 07:40
PROVIDERS: Emergency Medicine; Internal Medicine; Student in an Organized Health Care Education/Training Program
DX: I21.4 Non-ST elevation (NSTEMI) myocardial infarction (principal); I12.9 Hypertensive chronic kidney disease with stage 1 through stage 4 chronic kidney disease, or unspecified chronic kidney disease; I50.9 Heart failure, unspecified; N18.6 End stage renal disease; I48.0 Paroxysmal atrial fibrillation; E83.51 Hypocalcemia; J18.9 Pneumonia, unspecified organism; N25.81 Secondary hyperparathyroidism of renal origin; I27.29 Other secondary pulmonary hypertension; Z99.81 Dependence on supplemental oxygen; I50.30 Unspecified diastolic (congestive) heart failure; D64.9 Anemia, unspecified; I48.2 Chronic atrial fibrillation; I25.10 Atherosclerotic heart disease of native coronary artery without angina pectoris; I34.0 Nonrheumatic mitral (valve) insufficiency; I08.0 Rheumatic disorders of both mitral and aortic valves; Z87.820 Personal history of traumatic brain injury; F71 Moderate intellectual disabilities; G40.909 Epilepsy, unspecified, not intractable, without status epilepticus; R00.0 Tachycardia, unspecified; F17.200 Nicotine dependence, unspecified, uncomplicated; E87.6 Hypokalemia; K21.9 Gastro-esophageal reflux disease without esophagitis; F32.9 Major depressive disorder, single episode, unspecified; J44.9 Chronic obstructive pulmonary disease, unspecified; R79.1 Abnormal coagulation profile; R09.02 Hypoxemia; I25.2 Old myocardial infarction; Z82.49 Family history of ischemic heart disease and other diseases of the circulatory system; Z79.01 Long term (current) use of anticoagulants; Z91.19 Patient's noncompliance with other medical treatment and regimen; Z95.2 Presence of prosthetic heart valve; Z99.2 Dependence on renal dialysis; Z95.1 Presence of aortocoronary bypass graft
CPT/HCPCS: 32557; 71010; 80048; 80053; 80069; 80185; 82330; 83605; 83690; 84100; 84484; 85025; 85027; 85610; 85730; 87040; 93005; 94640; 94640 76; 94799; 95819; 99202; 99281; 99285; C1769; C1887; C1894; J0610; J0881; J1270; J1650; J1756; J1956; J2250; J2270; J2405; J3010; J7040; J7050; J7512; S0028

== ENCOUNTER 2017-03-10 10:15 | Day surgery (SDC) | payer OTHER ==
[~2017-03-10 10:15] MED LIST changes: +ACID CONTROL150 MG PO; +COUMADIN1 MG PO; +ELIQUIS2.5 MG PO; +LEVAQUIN500 MG PO; +SPIRIVA1 INHALATI IH; +TUMS500 MG PO
[2017-03-10 10:49] VITALS: BP 129/79
[2017-03-10 11:22] LABS: HEMATOCRIT 35.3 % (36.0-46.0); MCH 30.9 PG (29.0-34.0); MCHC 30.6 G/DL (30.0-36.0); MCV 100.9 FL (83-99); RBC DIS.WIDTH-SD 74.6 % (39-53); WHITE BLOOD COUNT 10.1 K/uL (4.1-10.2)
[2017-03-10 11:23] LABS: HEMOGLOBIN 10.8 G/DL (11.9-15.5); PLATELET COUNT 161 K/uL (156-360)
[2017-03-10 11:50] LABS: CHLORIDE 96 MEQ/L (99-109); CREATININE 6.4 MG/DL (0.6-1.3); GFR ESTIMATE (CALCULATED) 7 mL/min/; GLUCOSE 91 mg/dL (70-99); SODIUM 142 MEQ/L (136-147); UREA NITROGEN (BUN) 46 mg/dL (9-23)
[2017-03-10 11:51] LABS: INTER. NORMALIZED RATIO 1.5
[2017-03-10 14:26] VITALS: BP 95/59
[2017-03-10 20:26] VITALS: BP 106/56
[2017-03-11 10:57] LABS: HEPATITIS B SURFACE ANTIGEN Nonreactive
== END 2017-03-10 21:25 | disposition home or self-care (01) ==
LOC: SDC 10:15 → 2EASTP 10:17
PROVIDERS: Internal Medicine; Surgery
DX: T82.868A Thrombosis due to vascular prosthetic devices, implants and grafts, initial encounter (principal); I12.0 Hypertensive chronic kidney disease with stage 5 chronic kidney disease or end stage renal disease; N18.6 End stage renal disease; Z99.2 Dependence on renal dialysis; I48.91 Unspecified atrial fibrillation; J44.9 Chronic obstructive pulmonary disease, unspecified; K21.9 Gastro-esophageal reflux disease without esophagitis; I25.10 Atherosclerotic heart disease of native coronary artery without angina pectoris; I44.7 Left bundle-branch block, unspecified; J98.11 Atelectasis; Z95.1 Presence of aortocoronary bypass graft; Z87.891 Personal history of nicotine dependence; I25.2 Old myocardial infarction; Z79.82 Long term (current) use of aspirin; Z79.01 Long term (current) use of anticoagulants; Z88.0 Allergy status to penicillin
CPT/HCPCS: 71010; 80048; 85027; 85610; 87340; 93005; C1725; C1757; C2628; G0257; G0378; J1644; J2250; J3010; J7040

== ENCOUNTER 2017-03-14 17:55 | Inpatient (IN) | payer OTHER ==
[~2017-03-14] VITALS: Ht 144.8 cm; Wt 48.5 kg
[2017-03-14 18:33] LABS: BASOPHIL (%) 0.8 % (0-1); BASOPHIL COUNT 0.1 K/uL (0-0.1); EOSINOPHIL (%) 0.7 % (0-5); EOSINOPHIL COUNT 0.1 K/uL (0-0.3); HEMOGLOBIN 10.9 G/DL (11.9-15.5); IMMATURE GRANULOCYTE (%) 0.5 % (0.0-0.7); LYMPHOCYTE (%) 4.7 % (15-42); LYMPHOCYTE COUNT 0.4 K/uL (1.0-2.8); MCH 30.7 PG (29.0-34.0); MCHC 31.1 G/DL (30.0-36.0); MCV 98.6 FL (83-99); MONOCYTE (%) 7.8 % (3-12); MONOCYTE COUNT 0.7 K/uL (0-0.8); NEUTROPHIL (%) 85.5 % (45-76); NEUTROPHIL COUNT 7.6 K/uL (1.8-6.4); PLATELET COUNT 152 K/uL (156-360); RBC DIS.WIDTH-CV 19.2 % (11.8-14.6); RBC DIS.WIDTH-SD 69.7 % (39-53); RED BLOOD COUNT 3.55 M/uL (3.80-5.20); WHITE BLOOD COUNT 8.9 K/uL (4.1-10.2)
[2017-03-14 18:38] LABS: INTER. NORMALIZED RATIO 1.4
[2017-03-14 18:41] LABS: PTT 30.6 SEC (25-37)
[2017-03-14 18:51] LABS: CARBON DIOXIDE (BICARBONATE) 33.6 MEQ/L (20-31)
[2017-03-14 18:58] LABS: TROP-I INTERPRETATION NEGATIVE
[2017-03-14 19:17] LABS: ALBUMIN 3.2 g/dL (3.2-4.8)
[2017-03-14 19:18] LABS: CHLORIDE 99 mEq/L (99-109); POTASSIUM 4.1 mEq/L (3.7-5.4); SODIUM 143 mEq/L (136-147)
[2017-03-14 19:20] LABS: GLUCOSE 108 mg/dL (70-99); TOTAL PROTEIN 5.7 g/dL (6.4-8.3)
[2017-03-14 19:22] LABS: TOTAL BILIRUBIN 0.6 mg/dL (0.0-1.0)
[2017-03-14 19:23] LABS: ALKALINE PHOSPHATASE 120 IU/L (3-129)
[2017-03-14 19:24] LABS: GFR ESTIMATE (CALCULATED) 9 mL/min/
[2017-03-14 19:25] LABS: AST (GOT) 14 IU/L (2-34); UREA NITROGEN (BUN) 28 mg/dL (9-23)
[2017-03-14 19:26] LABS: ALT (GPT) 7 IU/L (3-49)
[2017-03-14 19:28] LABS: CREATININE 5.3 mg/dL (0.6-1.3)
[2017-03-14] MEDS ORDERED: SENSIPAR60 MG PO (21:00)
[2017-03-14] MEDS ORDERED: DILANTIN100 MG PO (21:00)
[2017-03-15] VITALS (16 sets, daily range): BP systolic 81–120; BP diastolic 50–83
[2017-03-15 05:45] LABS: BASOPHIL (%) 0.7 % (0-1); EOSINOPHIL (%) 0 % (0-5); HEMATOCRIT 31.2 % (36.0-46.0); HEMOGLOBIN 9.1 G/DL (11.9-15.5); IMMATURE GRANULOCYTE (%) 0.2 % (0.0-0.7); LYMPHOCYTE (%) 3.4 % (15-42); LYMPHOCYTE COUNT 0.2 K/uL (1.0-2.8); MCH 29.6 PG (29.0-34.0); MCHC 29.2 G/DL (30.0-36.0); MCV 101.6 FL (83-99); MONOCYTE (%) 3.1 % (3-12); MONOCYTE COUNT 0.2 K/uL (0-0.8); NEUTROPHIL (%) 92.6 % (45-76); NEUTROPHIL COUNT 5.4 K/uL (1.8-6.4); RBC DIS.WIDTH-CV 19.2 % (11.8-14.6); RBC DIS.WIDTH-SD 71.9 % (39-53); RED BLOOD COUNT 3.07 M/uL (3.80-5.20); WHITE BLOOD COUNT 5.9 K/uL (4.1-10.2)
[2017-03-15 05:56] LABS: MAGNESIUM 2.4 mg/dl (1.3-2.7); PHOSPHORUS 7.1 mg/dL (2.5-4.9); VANCOMYCIN, TROUGH 11.7 MCG/ML (10-20)
[2017-03-15 06:47] LABS: PLAT.SUFFICIENCY DECREASED
[2017-03-15 06:52] LABS: PLATELET COUNT 88 K/uL (156-360)
[2017-03-15 07:58] LABS: CHLORIDE 97 MEQ/L (99-109); CREATININE 6.1 MG/DL (0.6-1.3); GFR ESTIMATE (CALCULATED) 8 mL/min/; GLUCOSE 117 mg/dL (70-99); SODIUM 141 MEQ/L (136-147); UREA NITROGEN (BUN) 34 mg/dL (9-23)
[2017-03-15 13:58] LABS: HEPATITIS B SURFACE ANTIGEN Nonreactive
[2017-03-16] VITALS (7 sets, daily range): BP systolic 98–122; BP diastolic 55–78
[2017-03-16 10:28] LABS: HEMATOCRIT 30.3 % (36.0-46.0); HEMOGLOBIN 9.2 G/DL (11.9-15.5); MCH 30.8 PG (29.0-34.0); MCHC 30.4 G/DL (30.0-36.0); MCV 101.3 FL (83-99); PLATELET COUNT 92 K/uL (156-360); RBC DIS.WIDTH-CV 18.6 % (11.8-14.6); RBC DIS.WIDTH-SD 69.3 % (39-53); RED BLOOD COUNT 2.99 M/uL (3.80-5.20); WHITE BLOOD COUNT 5.5 K/uL (4.1-10.2)
[2017-03-16 10:57] LABS: CHLORIDE 99 MEQ/L (99-109); POTASSIUM 4.4 MEQ/L (3.7-5.4); SODIUM 136 MEQ/L (136-147)
[2017-03-16 11:03] LABS: GFR ESTIMATE (CALCULATED) 17 mL/min/; GLUCOSE 145 mg/dL (70-99); UREA NITROGEN (BUN) 30 mg/dL (9-23)
[2017-03-16 11:42] LABS: CREATININE 3.1 MG/DL (0.6-1.3)
[2017-03-16 13:42] LABS: VANCOMYCIN, TROUGH 20.4 MCG/ML (10-20)
[2017-03-16 15:51] LABS: MAGNESIUM 2.4 mg/dl (1.3-2.7)
[2017-03-17 03:38] VITALS: BP 112/70
[2017-03-17 07:07] LABS: CHLORIDE 98 MEQ/L (99-109); GLUCOSE 136 mg/dL (70-99); PHOSPHORUS 5.8 mg/dL (2.5-4.9); POTASSIUM 4.5 MEQ/L (3.7-5.4); SODIUM 136 MEQ/L (136-147); VANCOMYCIN, TROUGH 20.8 MCG/ML (10-20)
[2017-03-17 07:11] LABS: CREATININE 4.4 MG/DL (0.6-1.3); GFR ESTIMATE (CALCULATED) 11 mL/min/; UREA NITROGEN (BUN) 53 mg/dL (9-23)
[2017-03-17 07:22] LABS: HEMATOCRIT 30.6 % (36.0-46.0); HEMOGLOBIN 9.4 G/DL (11.9-15.5); MCH 30.5 PG (29.0-34.0); MCHC 30.7 G/DL (30.0-36.0); MCV 99.4 FL (83-99); PLATELET COUNT 99 K/uL (156-360); RBC DIS.WIDTH-CV 18.5 % (11.8-14.6); RED BLOOD COUNT 3.08 M/uL (3.80-5.20); WHITE BLOOD COUNT 8.3 K/uL (4.1-10.2)
[2017-03-17 09:00] VITALS: BP 115/61
[2017-03-17 11:50] VITALS: BP 116/70
[2017-03-17 15:22] VITALS: BP 116/62
[2017-03-17 19:15] LABS: TYPE OF FLUID PLEURAL
[2017-03-17 19:20] VITALS: BP 96/52
[2017-03-17 19:29] LABS: APPEARANCE CLEAR-YELLOW; BODY FLUID RBC'S 1000 /MM^3 (0-100); BODY FLUID WBC'S 129 /MM^3 (0-500)
[2017-03-17 20:04] LABS: BODY FLUID GLUCOSE 126 MG/DL; BODY FLUID LDH 59 IU/L
[2017-03-17 20:07] LABS: BODY FLUID PROTEIN < 3.0 G/DL
[2017-03-17 20:17] LABS: BODY FLUID EOSINOPHILS 0 % (0-25); MONONUCLEAR WBC'S 89 %; POLYNUCLEAR WBC'S 11 % (0-25)
[2017-03-18 03:06] VITALS: BP 110/68
[2017-03-18 07:25] VITALS: BP 100/60
[2017-03-18 09:36] LABS: HEMATOCRIT 33.7 % (36.0-46.0); HEMOGLOBIN 10.2 G/DL (11.9-15.5); MCH 30.1 PG (29.0-34.0); MCHC 30.3 G/DL (30.0-36.0); MCV 99.4 FL (83-99); PLATELET COUNT 116 K/uL (156-360); RBC DIS.WIDTH-CV 18.3 % (11.8-14.6); RBC DIS.WIDTH-SD 67.7 % (39-53); RED BLOOD COUNT 3.39 M/uL (3.80-5.20); WHITE BLOOD COUNT 11.4 K/uL (4.1-10.2)
[2017-03-18 10:20] LABS: CHLORIDE 98 MEQ/L (99-109); GFR ESTIMATE (CALCULATED) 15 mL/min/; GLUCOSE 179 mg/dL (70-99); POTASSIUM 3.9 MEQ/L (3.7-5.4); SODIUM 137 MEQ/L (136-147); UREA NITROGEN (BUN) 39 mg/dL (9-23)
[2017-03-18 10:34] LABS: CREATININE 3.3 MG/DL (0.6-1.3)
[2017-03-18 17:25] VITALS: BP 106/54
[2017-03-19 00:19] VITALS: BP 123/56
[2017-03-19 03:56] VITALS: BP 95/51
[2017-03-19 06:36] LABS: ALBUMIN 2.8 G/DL (3.2-4.8); CHLORIDE 95 MEQ/L (99-109); CREATININE 4.8 MG/DL (0.6-1.3); GFR ESTIMATE (CALCULATED) 10 mL/min/; GLUCOSE 161 mg/dL (70-99); POTASSIUM 4.4 MEQ/L (3.7-5.4); SODIUM 138 MEQ/L (136-147); UREA NITROGEN (BUN) 63 mg/dL (9-23); VANCOMYCIN, TROUGH 10.8 MCG/ML (10-20)
[2017-03-19 06:45] LABS: HEMATOCRIT 31.7 % (36.0-46.0); HEMOGLOBIN 9.7 G/DL (11.9-15.5); MCH 29.8 PG (29.0-34.0); MCHC 30.6 G/DL (30.0-36.0); MCV 97.2 FL (83-99); NRBC (%) 0.3 /100 WBC (0-0); PLATELET COUNT 117 K/uL (156-360); RBC DIS.WIDTH-CV 18.3 % (11.8-14.6); RBC DIS.WIDTH-SD 65.1 % (39-53); RED BLOOD COUNT 3.26 M/uL (3.80-5.20); WHITE BLOOD COUNT 7.9 K/uL (4.1-10.2)
[2017-03-19 08:23] VITALS: BP 131/61
[2017-03-19 20:07] VITALS: BP 124/58
[2017-03-19 23:03] VITALS: BP 123/56
[2017-03-20 06:47] LABS: HEMATOCRIT 35.2 % (36.0-46.0); HEMOGLOBIN 10.7 G/DL (11.9-15.5); MCH 29.9 PG (29.0-34.0); MCHC 30.4 G/DL (30.0-36.0); MCV 98.3 FL (83-99); NRBC (%) 0.6 /100 WBC (0-0); PLATELET COUNT 121 K/uL (156-360); RBC DIS.WIDTH-CV 18.6 % (11.8-14.6); RBC DIS.WIDTH-SD 67.2 % (39-53); RED BLOOD COUNT 3.58 M/uL (3.80-5.20); WHITE BLOOD COUNT 8.8 K/uL (4.1-10.2)
[2017-03-20 07:10] LABS: CHLORIDE 100 MEQ/L (99-109); GFR ESTIMATE (CALCULATED) 13 mL/min/; GLUCOSE 162 mg/dL (70-99); MAGNESIUM 2.5 mg/dl (1.3-2.7); POTASSIUM 4.1 MEQ/L (3.7-5.4); SODIUM 139 MEQ/L (136-147); UREA NITROGEN (BUN) 46 mg/dL (9-23)
[2017-03-20 07:18] LABS: CREATININE 3.9 MG/DL (0.6-1.3)
[2017-03-20 08:18] VITALS: BP 123/65
[2017-03-20 16:49] VITALS: BP 128/68
[2017-03-21 00:35] VITALS: BP 122/74
[2017-03-21 08:53] VITALS: BP 117/57
[2017-03-21 08:53] LABS: BASOPHIL (%) 0.1 % (0-1); EOSINOPHIL (%) 0.1 % (0-5); HEMATOCRIT 33.9 % (36.0-46.0); HEMOGLOBIN 10.6 G/DL (11.9-15.5); IMMATURE GRANULOCYTE (%) 1.3 % (0.0-0.7); LYMPHOCYTE (%) 4.8 % (15-42); LYMPHOCYTE COUNT 0.7 K/uL (1.0-2.8); MCH 30.8 PG (29.0-34.0); MCHC 31.3 G/DL (30.0-36.0); MCV 98.5 FL (83-99); MONOCYTE (%) 5.8 % (3-12); MONOCYTE COUNT 0.8 K/uL (0-0.8); NEUTROPHIL (%) 87.9 % (45-76); NEUTROPHIL COUNT 11.8 K/uL (1.8-6.4); NRBC (%) 0.2 /100 WBC (0-0); PLATELET COUNT 137 K/uL (156-360); RBC DIS.WIDTH-CV 19.3 % (11.8-14.6); RBC DIS.WIDTH-SD 66.9 % (39-53); RED BLOOD COUNT 3.44 M/uL (3.80-5.20); WHITE BLOOD COUNT 13.5 K/uL (4.1-10.2)
[2017-03-21 10:01] LABS: CHLORIDE 98 MEQ/L (99-109); GFR ESTIMATE (CALCULATED) 9 mL/min/; GLUCOSE 208 mg/dL (70-99); POTASSIUM 4.8 MEQ/L (3.7-5.4); SODIUM 134 MEQ/L (136-147)
[2017-03-21 10:02] LABS: CREATININE 5.1 MG/DL (0.6-1.3); UREA NITROGEN (BUN) 81 mg/dL (9-23)
[2017-03-21 11:46] VITALS: BP 119/89
[2017-03-21] MEDS ORDERED: CEFDINIR300 MG PO (13:15)
[2017-03-21 16:30] VITALS: BP 110/57
[2017-03-22] MEDS ORDERED: TOPROL XL25 MG PO (22:02)
[2017-03-22] MEDS ORDERED: RENVELA2.4 GM PO ×2 (22:04)
== END 2017-03-21 17:04 | disposition home health service (06) | DRG 189 ==
LOC: EME 17:55 → 4WEST 22:26 → EDOF 22:26 → 4EAST 22:26 → ENRESERV 22:54 → 4WEST 03-15 00:18 → ENRESERV 03-16 02:28 → 4EAST 03-16 04:14 → ENRESERV 03-17 18:35 → 5EAST 03-17 23:43
PROVIDERS: Emergency Medicine; Hospitalist; Internal Medicine; Internal Medicine Critical Care Medicine; Internal Medicine Pulmonary Disease; Specialist; Student in an Organized Health Care Education/Training Program
DX: J96.01 Acute respiratory failure with hypoxia (principal); J11.00 Influenza due to unidentified influenza virus with unspecified type of pneumonia; I12.0 Hypertensive chronic kidney disease with stage 5 chronic kidney disease or end stage renal disease; J90 Pleural effusion, not elsewhere classified; N18.6 End stage renal disease; J44.1 Chronic obstructive pulmonary disease with (acute) exacerbation; I48.0 Paroxysmal atrial fibrillation; G40.909 Epilepsy, unspecified, not intractable, without status epilepticus; E83.39 Other disorders of phosphorus metabolism; D63.1 Anemia in chronic kidney disease; G43.909 Migraine, unspecified, not intractable, without status migrainosus; N25.81 Secondary hyperparathyroidism of renal origin; F39 Unspecified mood [affective] disorder; I25.10 Atherosclerotic heart disease of native coronary artery without angina pectoris; F71 Moderate intellectual disabilities; I27.20 Pulmonary hypertension, unspecified; Y95 Nosocomial condition; Z87.820 Personal history of traumatic brain injury; Z87.891 Personal history of nicotine dependence; Z91.11 Patient's noncompliance with dietary regimen; Z99.2 Dependence on renal dialysis; Z95.1 Presence of aortocoronary bypass graft; Z91.14 Patient's other noncompliance with medication regimen; I25.2 Old myocardial infarction; Z79.899 Other long term (current) drug therapy; E83.51 Hypocalcemia; Z88.0 Allergy status to penicillin; Z88.8 Allergy status to other drugs, medicaments and biological substances; I05.2 Rheumatic mitral stenosis with insufficiency; J44.0 Chronic obstructive pulmonary disease with (acute) lower respiratory infection
CPT/HCPCS: 36600; 71045; 71046; 76942; 80048; 80053; 80069; 80202; 82803; 82945; 83605; 83615 91; 83735; 83880; 84100; 84157; 84484; 85025; 85027; 85610; 85730; 87040; 87070; 87075; 87205; 87340; 87502; 87641; 88108; 88305; 89051; 93005; 94002; 94640; 94640 76; 94644; 94760; 94799; 99202; 99281; 99284; J0692; J0881; J1270; J2270; J2920; J3370; J7050; J7512; J7644

== ENCOUNTER 2017-03-22 19:48 | Inpatient (IN) | payer OTHER ==
[~2017-03-22] VITALS: Ht 142.2 cm; Wt 56.7 kg
[~2017-03-22 19:48] MED LIST changes: +CEFDINIR300 MG PO
[2017-03-22 20:38] LABS: HEMATOCRIT 39.3 % (36.0-46.0); HEMOGLOBIN 12.5 G/DL (11.9-15.5); MCH 31.3 PG (29.0-34.0); MCHC 31.8 G/DL (30.0-36.0); MCV 98.3 FL (83-99); NRBC (%) 0.1 /100 WBC (0-0); PLATELET COUNT 123 K/uL (156-360); RBC DIS.WIDTH-CV 19.7 % (11.8-14.6); RBC DIS.WIDTH-SD 67.2 % (39-53); WHITE BLOOD COUNT 14.7 K/uL (4.1-10.2)
[2017-03-22 20:47] LABS: CHLORIDE 104 mEq/L (99-109); POTASSIUM 4.5 mEq/L (3.7-5.4); SODIUM 139 mEq/L (136-147)
[2017-03-22 20:48] LABS: MAGNESIUM 2.6 mg/dL (1.3-2.7)
[2017-03-22 20:53] LABS: CREATININE 4.7 mg/dL (0.6-1.3); GFR ESTIMATE (CALCULATED) 10 mL/min/; PHOSPHORUS 3.9 mg/dL (2.5-4.9)
[2017-03-22 20:54] LABS: GLUCOSE 92 mg/dL (70-99); UREA NITROGEN (BUN) 64 mg/dL (9-23)
[2017-03-22 21:00] LABS: TROP-I INTERPRETATION NEGATIVE; TROPONIN-I 0.11 ng/mL (0.0-0.30)
[2017-03-22] MEDS ORDERED: TOPROL XL25 MG PO (22:02)
[2017-03-22] MEDS ORDERED: RENVELA2.4 GM PO ×2 (22:04)
[2017-03-23 04:30] VITALS: BP 118/74
[2017-03-23 07:55] VITALS: BP 113/76
[2017-03-23 07:56] LABS: BASOPHIL (%) 0.2 % (0-1); EOSINOPHIL (%) 0.1 % (0-5); HEMATOCRIT 37.1 % (36.0-46.0); HEMOGLOBIN 11.4 G/DL (11.9-15.5); IMMATURE GRANULOCYTE (%) 3.1 % (0.0-0.7); LYMPHOCYTE (%) 1.9 % (15-42); LYMPHOCYTE COUNT 0.3 K/uL (1.0-2.8); MCH 30.4 PG (29.0-34.0); MCHC 30.7 G/DL (30.0-36.0); MCV 98.9 FL (83-99); MONOCYTE (%) 1.9 % (3-12); MONOCYTE COUNT 0.3 K/uL (0-0.8); NEUTROPHIL (%) 92.8 % (45-76); NEUTROPHIL COUNT 14.4 K/uL (1.8-6.4); PLATELET COUNT 139 K/uL (156-360); RBC DIS.WIDTH-CV 19.7 % (11.8-14.6); RBC DIS.WIDTH-SD 67.8 % (39-53); RED BLOOD COUNT 3.75 M/uL (3.80-5.20); WHITE BLOOD COUNT 15.6 K/uL (4.1-10.2)
[2017-03-23 08:22] LABS: ALBUMIN 3.1 G/DL (3.2-4.8); CHLORIDE 102 MEQ/L (99-109); SODIUM 140 MEQ/L (136-147)
[2017-03-23 08:31] LABS: CREATININE 5.3 MG/DL (0.6-1.3); GFR ESTIMATE (CALCULATED) 9 mL/min/; PHOSPHORUS 5.4 mg/dL (2.5-4.9); UREA NITROGEN (BUN) 78 mg/dL (9-23)
[2017-03-23 08:32] LABS: GLUCOSE 192 mg/dL (70-99); POTASSIUM 5.6 MEQ/L (3.7-5.4)
[2017-03-23 17:27] VITALS: BP 100/52
[2017-03-23 21:00] VITALS: BP 107/73
[2017-03-24 00:30] VITALS: BP 116/68
[2017-03-24 03:21] VITALS: BP 112/70
[2017-03-24 06:19] LABS: BASOPHIL (%) 0.2 % (0-1); EOSINOPHIL (%) 1.2 % (0-5); EOSINOPHIL COUNT 0.1 K/uL (0-0.3); HEMATOCRIT 34.7 % (36.0-46.0); HEMOGLOBIN 10.7 G/DL (11.9-15.5); IMMATURE GRANULOCYTE (%) 1.8 % (0.0-0.7); LYMPHOCYTE (%) 5.3 % (15-42); LYMPHOCYTE COUNT 0.6 K/uL (1.0-2.8); MCH 30.4 PG (29.0-34.0); MCHC 30.8 G/DL (30.0-36.0); MCV 98.6 FL (83-99); MONOCYTE (%) 6.6 % (3-12); MONOCYTE COUNT 0.8 K/uL (0-0.8); NEUTROPHIL (%) 84.9 % (45-76); NEUTROPHIL COUNT 9.8 K/uL (1.8-6.4); RBC DIS.WIDTH-CV 20.3 % (11.8-14.6); RBC DIS.WIDTH-SD 70.8 % (39-53); RED BLOOD COUNT 3.52 M/uL (3.80-5.20); WHITE BLOOD COUNT 11.6 K/uL (4.1-10.2)
[2017-03-24 06:36] LABS: PLAT.SUFFICIENCY DECREASED; PLATELET COUNT 93 K/uL (156-360)
[2017-03-24 07:41] LABS: CHLORIDE 101 MEQ/L (99-109); CREATININE 4.1 MG/DL (0.6-1.3); GFR ESTIMATE (CALCULATED) 12 mL/min/; GLUCOSE 91 mg/dL (70-99); POTASSIUM 4.8 MEQ/L (3.7-5.4); SODIUM 140 MEQ/L (136-147); UREA NITROGEN (BUN) 47 mg/dL (9-23); VANCOMYCIN, TROUGH 14.8 MCG/ML (10-20)
[2017-03-24 12:46] VITALS: BP 103/57
[2017-03-24 17:07] VITALS: BP 105/58
[2017-03-24 20:50] VITALS: BP 118/74
[2017-03-25 00:11] VITALS: BP 118/65
[2017-03-25 03:26] VITALS: BP 125/72
[2017-03-25 05:41] LABS: HEMATOCRIT 38.4 % (36.0-46.0); HEMOGLOBIN 12.2 G/DL (11.9-15.5); MCH 31.7 PG (29.0-34.0); MCHC 31.8 G/DL (30.0-36.0); MCV 99.7 FL (83-99); PLATELET COUNT 67 K/uL (156-360); RBC DIS.WIDTH-CV 20.9 % (11.8-14.6); RBC DIS.WIDTH-SD 74.6 % (39-53); RED BLOOD COUNT 3.85 M/uL (3.80-5.20); WHITE BLOOD COUNT 10.4 K/uL (4.1-10.2)
[2017-03-25 06:29] LABS: CHLORIDE 99 MEQ/L (99-109); CREATININE 5.3 MG/DL (0.6-1.3); GFR ESTIMATE (CALCULATED) 9 mL/min/; GLUCOSE 94 mg/dL (70-99); POTASSIUM 5.2 MEQ/L (3.7-5.4); SODIUM 139 MEQ/L (136-147); UREA NITROGEN (BUN) 67 mg/dL (9-23)
[2017-03-25 08:15] VITALS: BP 109/61
[2017-03-25 12:32] VITALS: BP 132/65
[2017-03-25 19:00] VITALS: BP 99/57
[2017-03-25 22:30] VITALS: BP 104/55
[2017-03-26 04:30] VITALS: BP 115/58
[2017-03-26 07:01] LABS: HEMATOCRIT 34.1 % (36.0-46.0); HEMOGLOBIN 10.7 G/DL (11.9-15.5); MCH 31.1 PG (29.0-34.0); MCHC 31.4 G/DL (30.0-36.0); MCV 99.1 FL (83-99); RBC DIS.WIDTH-CV 20.7 % (11.8-14.6); RBC DIS.WIDTH-SD 75.2 % (39-53); RED BLOOD COUNT 3.44 M/uL (3.80-5.20); WHITE BLOOD COUNT 11.2 K/uL (4.1-10.2)
[2017-03-26 07:10] VITALS: BP 107/62
[2017-03-26 07:16] LABS: CHLORIDE 97 MEQ/L (99-109); CREATININE 6.4 MG/DL (0.6-1.3); GFR ESTIMATE (CALCULATED) 7 mL/min/; GLUCOSE 105 mg/dL (70-99); PHOSPHORUS 6.1 mg/dL (2.5-4.9); SODIUM 140 MEQ/L (136-147); UREA NITROGEN (BUN) 86 mg/dL (9-23)
[2017-03-26 07:44] LABS: PLATELET COUNT 89 K/uL (156-360)
[2017-03-26 12:30] VITALS: BP 98/59
[2017-03-26 15:49] VITALS: BP 108/64
[2017-03-26 19:00] VITALS: BP 111/59
[2017-03-26 23:00] VITALS: BP 101/60
[2017-03-27 04:15] VITALS: BP 130/60
[2017-03-27 05:39] LABS: HEMATOCRIT 31.5 % (36.0-46.0); HEMOGLOBIN 9.7 G/DL (11.9-15.5); MCH 30.5 PG (29.0-34.0); MCHC 30.8 G/DL (30.0-36.0); MCV 99.1 FL (83-99); PLATELET COUNT 69 K/uL (156-360); RBC DIS.WIDTH-CV 20.4 % (11.8-14.6); RED BLOOD COUNT 3.18 M/uL (3.80-5.20); WHITE BLOOD COUNT 9.7 K/uL (4.1-10.2)
[2017-03-27 06:04] LABS: CHLORIDE 100 MEQ/L (99-109); GFR ESTIMATE (CALCULATED) 10 mL/min/; GLUCOSE 90 mg/dL (70-99); POTASSIUM 4.8 MEQ/L (3.7-5.4); SODIUM 138 MEQ/L (136-147); UREA NITROGEN (BUN) 45 mg/dL (9-23)
[2017-03-27 06:05] LABS: CREATININE 4.7 MG/DL (0.6-1.3)
[2017-03-27 08:20] VITALS: BP 107/60
[2017-03-27 16:15] LABS: UFH SRA Result Negative (Negative)
[2017-03-27 23:02] LABS: Heparin Induced Plt Ab Negative (Negative)
== END 2017-03-27 09:38 | disposition left against medical advice (07) | DRG 193 ==
LOC: EME → EDBD 19:48 → EME 19:48 → 4EAST 03-23 00:12 → EDOF 03-23 00:12 → ENRESERV 03-23 00:17 → 4EAST 03-23 04:33
PROVIDERS: Anesthesiology; Emergency Medicine; Hospitalist; Internal Medicine; Physician Assistant
DX: J18.9 Pneumonia, unspecified organism (principal); J44.1 Chronic obstructive pulmonary disease with (acute) exacerbation; J91.0 Malignant pleural effusion; J44.0 Chronic obstructive pulmonary disease with (acute) lower respiratory infection; N18.6 End stage renal disease; D63.1 Anemia in chronic kidney disease; I48.0 Paroxysmal atrial fibrillation; E83.39 Other disorders of phosphorus metabolism; E83.51 Hypocalcemia; E87.5 Hyperkalemia; I34.0 Nonrheumatic mitral (valve) insufficiency; I25.119 Atherosclerotic heart disease of native coronary artery with unspecified angina pectoris; J98.11 Atelectasis; F17.200 Nicotine dependence, unspecified, uncomplicated; Z99.81 Dependence on supplemental oxygen; N25.81 Secondary hyperparathyroidism of renal origin; I27.20 Pulmonary hypertension, unspecified; I12.9 Hypertensive chronic kidney disease with stage 1 through stage 4 chronic kidney disease, or unspecified chronic kidney disease; D69.6 Thrombocytopenia, unspecified; G40.909 Epilepsy, unspecified, not intractable, without status epilepticus; F71 Moderate intellectual disabilities; F39 Unspecified mood [affective] disorder; F41.9 Anxiety disorder, unspecified; Z99.2 Dependence on renal dialysis; Z91.19 Patient's noncompliance with other medical treatment and regimen; Z95.2 Presence of prosthetic heart valve; Z95.1 Presence of aortocoronary bypass graft; Z87.820 Personal history of traumatic brain injury; Z91.11 Patient's noncompliance with dietary regimen; I50.9 Heart failure, unspecified; Y95 Nosocomial condition; Z53.20 Procedure and treatment not carried out because of patient's decision for unspecified reasons; I25.2 Old myocardial infarction
CPT/HCPCS: 71045; 71046; 80048; 80069; 80202; 81003; 83735; 84100; 84484; 85025; 85027; 86022 90; 87070; 87205; 87449; 93005; 93306; 94640; 94640 76; 94799; 99202; 99281; 99284; J0692; J1100; J1270; J1644; J1815; J2270; J3010; J3370; J7050; J7644

== ENCOUNTER 2017-04-02 11:55 | Inpatient (IN) | payer OTHER ==
[~2017-04-02] VITALS: Ht 124.5 cm; Wt 45.9 kg
[2017-04-02 13:05] LABS: BASOPHIL (%) 0.8 % (0-1); BASOPHIL COUNT 0.1 K/uL (0-0.1); EOSINOPHIL (%) 0.6 % (0-5); EOSINOPHIL COUNT 0.1 K/uL (0-0.3); HEMATOCRIT 29.9 % (36.0-46.0); HEMOGLOBIN 9.3 G/DL (11.9-15.5); IMMATURE GRANULOCYTE (%) 0.4 % (0.0-0.7); LYMPHOCYTE (%) 5.7 % (15-42); LYMPHOCYTE COUNT 0.6 K/uL (1.0-2.8); MCH 31.1 PG (29.0-34.0); MCHC 31.1 G/DL (30.0-36.0); MONOCYTE COUNT 0.5 K/uL (0-0.8); NEUTROPHIL (%) 87.5 % (45-76); NEUTROPHIL COUNT 9.2 K/uL (1.8-6.4); PLATELET COUNT 89 K/uL (156-360); RBC DIS.WIDTH-CV 19.9 % (11.8-14.6); RBC DIS.WIDTH-SD 73.2 % (39-53); RED BLOOD COUNT 2.99 M/uL (3.80-5.20); WHITE BLOOD COUNT 10.5 K/uL (4.1-10.2)
[2017-04-02 13:17] LABS: INTER. NORMALIZED RATIO 1.2
[2017-04-02 13:20] LABS: PTT 31.6 SEC (25-37)
[2017-04-02 13:26] LABS: TROP-I INTERPRETATION NEGATIVE; TROPONIN-I 0.16 ng/mL (0.0-0.30)
[2017-04-02 14:03] LABS: CHLORIDE 100 mEq/L (99-109); POTASSIUM 5.1 mEq/L (3.7-5.4); SODIUM 140 mEq/L (136-147)
[2017-04-02 14:05] LABS: GLUCOSE 81 mg/dL (70-99)
[2017-04-02 14:09] LABS: GFR ESTIMATE (CALCULATED) 8 mL/min/
[2017-04-02 14:10] LABS: UREA NITROGEN (BUN) 49 mg/dL (9-23)
[2017-04-02 14:11] LABS: CREATININE 5.8 mg/dL (0.6-1.3)
[2017-04-02] MEDS ORDERED: DILANTIN100 MG PO (15:29)
[2017-04-02 15:31] LABS: LACTATE DEHYDROGENASE 289 IU/L (20-246)
[2017-04-02 18:48] LABS: TROP-I INTERPRETATION NEGATIVE; TROPONIN-I 0.21 ng/mL (0.0-0.30)
[2017-04-03] VITALS (16 sets, daily range): BP systolic 99–139; BP diastolic 52–74
[2017-04-03 01:48] LABS: TROP-I INTERPRETATION NEGATIVE; TROPONIN-I 0.12 ng/mL (0.0-0.30)
[2017-04-03 06:26] LABS: CHLORIDE 102 mEq/L (99-109); SODIUM 142 mEq/L (136-147)
[2017-04-03 06:28] LABS: GLUCOSE 129 mg/dL (70-99)
[2017-04-03 06:31] LABS: GFR ESTIMATE (CALCULATED) 14 mL/min/; HEMOGLOBIN 9.3 G/DL (11.9-15.5); MCH 32.2 PG (29.0-34.0); MCHC 32.1 G/DL (30.0-36.0); MCV 100.3 FL (83-99); PLATELET COUNT 97 K/uL (156-360); RBC DIS.WIDTH-CV 19.8 % (11.8-14.6); RBC DIS.WIDTH-SD 72.8 % (39-53); RED BLOOD COUNT 2.89 M/uL (3.80-5.20); WHITE BLOOD COUNT 6.3 K/uL (4.1-10.2)
[2017-04-03 06:32] LABS: CREATININE 3.5 mg/dL (0.6-1.3); UREA NITROGEN (BUN) 32 mg/dL (9-23)
[2017-04-03 09:54] LABS: TYPE OF FLUID THORACENTESIS
[2017-04-03 10:16] LABS: APPEARANCE SL. HAZY-YELLOW; BODY FLUID RBC'S < 1000 /MM^3 (0-100); BODY FLUID WBC'S 193 /MM^3 (0-500)
[2017-04-03 10:27] LABS: BODY FLUID EOSINOPHILS 4 % (0-25); MONONUCLEAR WBC'S 62 %; POLYNUCLEAR WBC'S 34 % (0-25)
[2017-04-03 11:02] LABS: BODY FLUID GLUCOSE 153 MG/DL; BODY FLUID LDH 95 IU/L; BODY FLUID PROTEIN < 3.0 G/DL
[2017-04-04] VITALS: BP 131/72
[2017-04-04 02:00] VITALS: BP 139/68
[2017-04-04 04:00] VITALS: BP 120/63
[2017-04-04 06:00] VITALS: BP 130/77
[2017-04-04 08:50] LABS: BASOPHIL (%) 0.1 % (0-1); EOSINOPHIL (%) 0 % (0-5); HEMATOCRIT 27.9 % (36.0-46.0); HEMOGLOBIN 8.6 G/DL (11.9-15.5); IMMATURE GRANULOCYTE (%) 0.7 % (0.0-0.7); LYMPHOCYTE (%) 2.7 % (15-42); LYMPHOCYTE COUNT 0.4 K/uL (1.0-2.8); MCHC 30.8 G/DL (30.0-36.0); MCV 100.7 FL (83-99); MONOCYTE (%) 1.6 % (3-12); MONOCYTE COUNT 0.2 K/uL (0-0.8); NEUTROPHIL (%) 94.9 % (45-76); NEUTROPHIL COUNT 13.3 K/uL (1.8-6.4); PLATELET COUNT 116 K/uL (156-360); RBC DIS.WIDTH-SD 73.1 % (39-53); RED BLOOD COUNT 2.77 M/uL (3.80-5.20)
[2017-04-04 09:12] LABS: CHLORIDE 99 MEQ/L (99-109); CREATININE 5.3 MG/DL (0.6-1.3); GFR ESTIMATE (CALCULATED) 9 mL/min/; GLUCOSE 203 mg/dL (70-99); POTASSIUM 4.5 MEQ/L (3.7-5.4); SODIUM 141 MEQ/L (136-147); UREA NITROGEN (BUN) 57 mg/dL (9-23)
[2017-04-04 12:00] VITALS: BP 114/68
== END 2017-04-04 14:37 | disposition left against medical advice (07) | DRG 205 ==
LOC: EME 11:55 → 4WEST 14:18 → EDOF 14:18 → 4EAST 14:18 → ENRESERV 14:20 → EDOF 22:22 → 4EAST 22:22 → ENRESERV 04-03 01:11 → 4WEST 04-03 06:10 → ENRESERVTM 04-03 14:20 → 4WEST 04-04 14:37
PROVIDERS: Emergency Medicine; Internal Medicine; Student in an Organized Health Care Education/Training Program
PROC: 5A1D70Z Performance of Urinary Filtration, Intermittent, Less than 6 Hours Per Day (ICD-10-PCS; 2017-04-02)
PROC: 0W9B3ZX Drainage of Left Pleural Cavity, Percutaneous Approach, Diagnostic (ICD-10-PCS; principal; 2017-04-03)
DX: J95.89 Other postprocedural complications and disorders of respiratory system, not elsewhere classified (principal); J91.8 Pleural effusion in other conditions classified elsewhere; Y83.2 Surgical operation with anastomosis, bypass or graft as the cause of abnormal reaction of the patient, or of later complication, without mention of misadventure at the time of the procedure; J96.21 Acute and chronic respiratory failure with hypoxia; J44.0 Chronic obstructive pulmonary disease with (acute) lower respiratory infection; J18.9 Pneumonia, unspecified organism; Y95 Nosocomial condition; J44.1 Chronic obstructive pulmonary disease with (acute) exacerbation; I13.2 Hypertensive heart and chronic kidney disease with heart failure and with stage 5 chronic kidney disease, or end stage renal disease; N18.6 End stage renal disease; I50.9 Heart failure, unspecified; Z91.19 Patient's noncompliance with other medical treatment and regimen; Z99.2 Dependence on renal dialysis; I27.20 Pulmonary hypertension, unspecified; D63.1 Anemia in chronic kidney disease; I48.0 Paroxysmal atrial fibrillation; D69.6 Thrombocytopenia, unspecified; N25.81 Secondary hyperparathyroidism of renal origin; E83.39 Other disorders of phosphorus metabolism; J98.11 Atelectasis; I48.2 Chronic atrial fibrillation; I25.10 Atherosclerotic heart disease of native coronary artery without angina pectoris; G43.909 Migraine, unspecified, not intractable, without status migrainosus; G40.909 Epilepsy, unspecified, not intractable, without status epilepticus; I25.2 Old myocardial infarction; F71 Moderate intellectual disabilities; F32.9 Major depressive disorder, single episode, unspecified; F41.9 Anxiety disorder, unspecified; F17.200 Nicotine dependence, unspecified, uncomplicated; Z95.3 Presence of xenogenic heart valve; Z95.1 Presence of aortocoronary bypass graft; Z79.01 Long term (current) use of anticoagulants; Z79.82 Long term (current) use of aspirin; Z82.49 Family history of ischemic heart disease and other diseases of the circulatory system; Z87.820 Personal history of traumatic brain injury
CPT/HCPCS: 71045; 76942; 80048; 80053; 80202; 82550; 82553; 82945; 83605; 83615; 83615 91; 83880; 84157; 84484; 85025; 85027; 85610; 85730; 87040; 87070; 87075; 87116; 87205; 87206; 87641; 88108; 88305; 89051; 93005; 94640; 94640 76; 94799; 99202; 99281; 99285; J0456; J0696; J0881; J2543; J2920; J3370; J7050

== ENCOUNTER 2017-06-20 12:12 | Inpatient (IN) | payer OTHER ==
[~2017-06-20] VITALS: Ht 124.5 cm; Wt 45.7 kg
[2017-06-20 13:20] LABS: BASOPHIL (%) 0.2 % (0-1); EOSINOPHIL (%) 0 % (0-5); HEMATOCRIT 39.8 % (36.0-46.0); IMMATURE GRANULOCYTE (%) 1.3 % (0.0-0.7); LYMPHOCYTE (%) 4.8 % (15-42); LYMPHOCYTE COUNT 0.7 K/uL (1.0-2.8); MCH 29.4 PG (29.0-34.0); MCHC 32.7 G/DL (30.0-36.0); MONOCYTE (%) 4.5 % (3-12); MONOCYTE COUNT 0.7 K/uL (0-0.8); NEUTROPHIL (%) 89.2 % (45-76); NEUTROPHIL COUNT 13.6 K/uL (1.8-6.4); PLATELET COUNT 57 K/uL (156-360); RBC DIS.WIDTH-CV 16.5 % (11.8-14.6); RBC DIS.WIDTH-SD 54.5 % (39-53); RED BLOOD COUNT 4.42 M/uL (3.80-5.20); WHITE BLOOD COUNT 15.3 K/uL (4.1-10.2)
[2017-06-20 13:22] LABS: INTER. NORMALIZED RATIO 1.4
[2017-06-20 13:25] LABS: PTT 40.1 SEC (25-37)
[2017-06-20 13:29] LABS: ALBUMIN 3.2 g/dL (3.2-4.8); CHLORIDE 92 mEq/L (99-109); POTASSIUM 5.1 mEq/L (3.7-5.4); SODIUM 135 mEq/L (136-147)
[2017-06-20 13:31] LABS: GLUCOSE 99 mg/dL (70-99)
[2017-06-20 13:33] LABS: TOTAL BILIRUBIN 0.4 mg/dL (0.0-1.0)
[2017-06-20 13:35] LABS: ALKALINE PHOSPHATASE 85 IU/L (3-129); CREATININE 9.6 mg/dL (0.6-1.3); GFR ESTIMATE (CALCULATED) 4 mL/min/
[2017-06-20 13:36] LABS: UREA NITROGEN (BUN) 58 mg/dL (9-23)
[2017-06-20 13:37] LABS: AST (GOT) 16 IU/L (2-34)
[2017-06-20 13:38] LABS: ALT (GPT) 6 IU/L (3-49); LIPASE 28 U/L (1.0-51.0)
[2017-06-20 13:39] LABS: TROP-I INTERPRETATION INDETERMINATE; TROPONIN-I 0.55 ng/mL (0.0-0.30)
[2017-06-20 21:12] VITALS: BP 104/64
[2017-06-20 22:48] VITALS: BP 98/70
[2017-06-21 01:22] LABS: TROP-I INTERPRETATION INDETERMINATE; TROPONIN-I 0.41 ng/mL (0.0-0.30)
[2017-06-21 03:50] VITALS: BP 107/68
[2017-06-21 05:12] LABS: TROP-I INTERPRETATION INDETERMINATE; TROPONIN-I 0.37 ng/mL (0.0-0.30)
[2017-06-21 07:46] VITALS: BP 104/70
[2017-06-21 08:10] LABS: C DIFF TOXIN NEGATIVE (NEGATIVE)
[2017-06-21 08:30] LABS: CHLORIDE 94 mEq/L (99-109); POTASSIUM 4.1 mEq/L (3.7-5.4); SODIUM 137 mEq/L (136-147)
[2017-06-21 08:32] LABS: GLUCOSE 90 mg/dL (70-99)
[2017-06-21 08:36] LABS: GFR ESTIMATE (CALCULATED) 12 mL/min/
[2017-06-21 08:41] LABS: UREA NITROGEN (BUN) 21 mg/dL (9-23)
[2017-06-21 09:25] LABS: HEMATOCRIT 36.7 % (36.0-46.0); HEMOGLOBIN 11.6 G/DL (11.9-15.5); MCH 29.2 PG (29.0-34.0); MCHC 31.6 G/DL (30.0-36.0); MCV 92.4 FL (83-99); RBC DIS.WIDTH-CV 16.6 % (11.8-14.6); RED BLOOD COUNT 3.97 M/uL (3.80-5.20)
[2017-06-21 09:33] LABS: BASOPHIL (%) 0.2 % (0-1); EOSINOPHIL (%) 0.1 % (0-5); IMMATURE GRANULOCYTE (%) 0.9 % (0.0-0.7); LYMPHOCYTE (%) 6.2 % (15-42); LYMPHOCYTE COUNT 0.8 K/uL (1.0-2.8); MONOCYTE (%) 5.1 % (3-12); MONOCYTE COUNT 0.6 K/uL (0-0.8); NEUTROPHIL (%) 87.5 % (45-76); NEUTROPHIL COUNT 10.5 K/uL (1.8-6.4); PLAT.SUFFICIENCY DECREASED
[2017-06-21 12:45] VITALS: BP 102/76
[2017-06-21 13:09] LABS: ALBUMIN 2.8 g/dL (3.2-4.8)
[2017-06-21 13:15] LABS: PHOSPHORUS 5.8 mg/dL (2.5-4.9)
[2017-06-21 14:39] LABS: PLATELET COUNT 47 K/uL (156-360)
[2017-06-21 16:09] VITALS: BP 103/55
[2017-06-21 20:00] VITALS: BP 112/74
[2017-06-21 23:45] VITALS: BP 104/70
[2017-06-22 00:18] VITALS: BP 110/80
[2017-06-22 04:00] VITALS: BP 112/70
[2017-06-22 07:19] LABS: BASOPHIL (%) 0 % (0-1); EOSINOPHIL (%) 0 % (0-5); HEMATOCRIT 36.2 % (36.0-46.0); HEMOGLOBIN 11.3 G/DL (11.9-15.5); IMMATURE GRANULOCYTE (%) 0.7 % (0.0-0.7); LYMPHOCYTE (%) 3.6 % (15-42); LYMPHOCYTE COUNT 0.2 K/uL (1.0-2.8); MCH 28.5 PG (29.0-34.0); MCHC 31.2 G/DL (30.0-36.0); MCV 91.2 FL (83-99); MONOCYTE (%) 2.2 % (3-12); MONOCYTE COUNT 0.1 K/uL (0-0.8); NEUTROPHIL (%) 93.5 % (45-76); NEUTROPHIL COUNT 5.4 K/uL (1.8-6.4); RBC DIS.WIDTH-CV 16.2 % (11.8-14.6); RBC DIS.WIDTH-SD 54.6 % (39-53); RED BLOOD COUNT 3.97 M/uL (3.80-5.20); WHITE BLOOD COUNT 5.8 K/uL (4.1-10.2)
[2017-06-22 07:28] LABS: CHLORIDE 95 MEQ/L (99-109); GLUCOSE 132 mg/dL (70-99); PHOSPHORUS 5.6 mg/dL (2.5-4.9); POTASSIUM 4.3 MEQ/L (3.7-5.4); SODIUM 136 MEQ/L (136-147)
[2017-06-22 07:35] LABS: CREATININE 5.8 MG/DL (0.6-1.3); GFR ESTIMATE (CALCULATED) 8 mL/min/; UREA NITROGEN (BUN) 45 mg/dL (9-23); VANCOMYCIN, TROUGH 7.4 MCG/ML (10-20)
[2017-06-22 07:53] LABS: HEMATOLOGY COMMENT 1 SMEAR COMPATIBLE; PLAT.SUFFICIENCY DECREASED
[2017-06-22 07:59] LABS: PLATELET COUNT 65 K/uL (156-360)
[2017-06-22 12:25] VITALS: BP 111/69
== END 2017-06-22 16:00 | disposition home or self-care (01) | DRG 871 ==
LOC: EME 12:12 → EDOF 17:50 → 4EAST 17:50 → ENRESERV 17:53 → 4EAST 19:46
PROVIDERS: Emergency Medicine; Internal Medicine
PROC: 5A1D70Z Performance of Urinary Filtration, Intermittent, Less than 6 Hours Per Day (ICD-10-PCS; principal; 2017-06-20)
DX: A41.89 Other specified sepsis (principal); N18.6 End stage renal disease; J96.21 Acute and chronic respiratory failure with hypoxia; J10.08 Influenza due to other identified influenza virus with other specified pneumonia; J15.9 Unspecified bacterial pneumonia; N25.81 Secondary hyperparathyroidism of renal origin; J44.0 Chronic obstructive pulmonary disease with (acute) lower respiratory infection; J44.1 Chronic obstructive pulmonary disease with (acute) exacerbation; I12.0 Hypertensive chronic kidney disease with stage 5 chronic kidney disease or end stage renal disease; J90 Pleural effusion, not elsewhere classified; E86.0 Dehydration; I48.2 Chronic atrial fibrillation; F71 Moderate intellectual disabilities; J10.1 Influenza due to other identified influenza virus with other respiratory manifestations; I25.10 Atherosclerotic heart disease of native coronary artery without angina pectoris; E78.5 Hyperlipidemia, unspecified; E83.51 Hypocalcemia; G40.909 Epilepsy, unspecified, not intractable, without status epilepticus; E83.39 Other disorders of phosphorus metabolism; D69.6 Thrombocytopenia, unspecified; D63.1 Anemia in chronic kidney disease; I27.20 Pulmonary hypertension, unspecified; E66.9 Obesity, unspecified; R91.8 Other nonspecific abnormal finding of lung field; I95.9 Hypotension, unspecified; B97.89 Other viral agents as the cause of diseases classified elsewhere; Z99.81 Dependence on supplemental oxygen; Z99.2 Dependence on renal dialysis; Z95.2 Presence of prosthetic heart valve; Z91.19 Patient's noncompliance with other medical treatment and regimen; Z95.1 Presence of aortocoronary bypass graft; I25.2 Old myocardial infarction; Z91.15 Patient's noncompliance with renal dialysis; Z88.0 Allergy status to penicillin; Z88.5 Allergy status to narcotic agent; Z79.01 Long term (current) use of anticoagulants; Z87.891 Personal history of nicotine dependence; Z68.29 Body mass index [BMI] 29.0-29.9, adult; Z82.49 Family history of ischemic heart disease and other diseases of the circulatory system
CPT/HCPCS: 71045; 74177; 80048; 80053; 80185; 80202; 81003; 82040; 82330; 83605; 83690; 84100; 84484; 85025; 85610; 85730; 87040; 87493; 87502; 87641; 93005; 94640; 94640 76; 94799; 99202; 99281; 99285; J0610; J0692; J1270; J1956; J2405; J2920; J3370; J7050; S0030